=== PATIENT | female | born 1935 | race Caucasian/White ===

== ENCOUNTER 2020-12-31 15:00 | Observation (INO) ==
[2020-12-31 15:16] VITALS: BMI 22.3
[2020-12-31] MEDS ORDERED: HumaLOG SC PRN (17:18)
--- NOTE | 2020-12-31 17:45 | DR.EXTPAIN ---
HPI Time seen Time Seen by Provider: 12/31/20 17:00 PCP Primary Care Physician: AYESHA HPI Comment HPI Comment: Acccording to pt she noticed redness over the top of her right foot in the morning and then during the afternoon it spread upwards.Pt was seen by Dr Murray and was advised to come to ER for IV antibiotics Complaint/Symptoms Chief Complaint Doctor Comments: right leg redness Chief Complaint:: PT C/O PAIN TO RLE WITH REDNESS AND SWELLING. PATIENTS STATES SHE WOK UP LAST NIGHT WITH THE PAIN TO RLE. 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 Family History History of Family Medical Conditions: No Social History Does any household member use tobacco: No Alcohol Use: None Do you use any recreational Drugs:: No Lives With: Family Lives Where: Home Travel Risk Coronavirus risk:travel/contact w/high risk person: No Has patient experienced Coronavirus symptoms: No Infectious screening In the last 2 months have you had wt loss of >10#?: NO Have you had fever, night sweats or hemotysis?: No Have you traveled outside the country in the last 6 months?: No Isolation: Standard ROS Review of Systems Constitutional: No Symptoms Reported Eyes: No Symptoms Reported ENTM: No Symptoms Reported Respiratoy: No Symptoms Reported Cardiovascular: No Symptoms Reported Gastrointestinal/Abdominal: No Symptoms Reported Genitourinary: No Symptoms Reported Neurological: No Symptoms Reported Integumentary: See HPI Hematologic/Lymphatic: No Symptoms Reported PE Vital Signs Vitals: Temperature 98.1 F Pulse Rate 69 Respiratory Rate 16 Blood Pressure 157/70 O2 Sat by Pulse Oximetry 97 General Limitations: No Limitations General Appearance: Alert and Anxious Head Head Exam: Normal Inspection, Atraumatic and Normocephalic Eyes Eye exam: PERRL and EOMI ENT ENT Exam: Normal Oropharynx and Mucous Membranes Moist Neck Neck Exam: Normal Inspection and Full ROM Chest Chest Inspection: Normal Inspection and Symmetric Chest Wall Rise Respiratory Respiratory Exam: Normal Lung Sounds Bilat Respiratory Exam: Bilateral: Clear to Auscultation Cardiovascular Cardiovascular Exam: +S1 and +S2 Abdominal Exam Abdominal Exam: Normal Bowel Sounds and Soft Other Exam Other Exam: right lower ext pos erythematous and warm to touch good peripheral ulses MDM Differential Diagnosis Differential Diagnosis: Other (right lower ext cellulitis ) Opioid Opioid Risk Tool Age (Kameron box if 16-45): No History of Preadolescent Sexual Abuse: No Total: 0 Total Score Risk Category: Low Risk Copyright: Juarez STRONG predicting aberrant behaviors Diagnosis Discharge Problem: Cellulitis of leg, right
[2020-12-31 18:46] LABS: BASOPHILS % (AUTO) 0.2 % (0.2-1.0); EOSINOPHILS % (AUTO) 0.2 % (0.9-2.9); HEMATOCRIT 38.5 % (36.0-47.0); HEMOGLOBIN 12.5 g/dL (12.0-16.0); LYMPHOCYTES % (AUTO) 7.3 % (21.0-51.0); MEAN CORPUSCULAR HEMOGLOBIN 27.1 pg (27.0-34.0); MEAN CORPUSCULAR HGB CONC 32.5 g/dL (33.0-35.0); MEAN CORPUSCULAR VOLUME 83.4 fL (80.0-100.0); MEAN PLATELET VOLUME 8.8 fL (7.4-11.0); MONOCYTES % (AUTO) 7.4 % (0.0-13.0); NEUTROPHILS # (AUTO) 11.2 x10^3/uL (2.2-4.8); NEUTROPHILS % (AUTO) 84.9 % (42.0-75.0); PLATELET COUNT 166 X10^3/uL (150.0-450.0); RED BLOOD COUNT 4.61 X10^6/uL (3.5-5.4); RED CELL DISTRIBUTION WIDTH 16.2 % (11.6-16.5); WHITE BLOOD COUNT 13.2 X10^3/uL (3.6-10.0)
[2020-12-31 18:58] LABS: ALANINE AMINOTRANSFERASE 19 Units/L (12-78); ALBUMIN 2.9 g/dL (3.4-5.0); ALKALINE PHOSPHATASE 85 Units/L (46-116); ASPARTATE AMINO TRANSFERASE 24 Units/L (15-37); BLOOD UREA NITROGEN 20 mg/dL (7-18); CALCIUM 8.8 mg/dL (8.5-10.1); CHLORIDE 101 mmol/L (98-107); COR CA(FOR HYPOALB) 9.7 mg/dL (8.5-10.1); CREATININE 1.53 mg/dL (0.55-1.02); SODIUM 137 mmol/L (136-145); TOTAL PROTEIN 6.3 g/dL (6.4-8.2); eGFR NON BLACK RACES 34 (>60)
[2020-12-31] MEDS: ZOSYN VIAL 3.375 GRAMS 3.375 G in NS 100 ML IV + SPIKE MINIBAG* 100 ML IV SCH ×2 (20:15→21:53)
[2020-12-31] MEDS: LR 1000 ML IV 1,000 ML IV SCH (20:15)
[2020-12-31] MEDS ORDERED: SYNTHROID 75 mcg TAB ONE (21:00)
[2020-12-31] MEDS: DEMADEX PO SCH (21:05)
[2020-12-31] MEDS: ELIQUIS PO SCH (21:05)
--- NOTE | 2020-12-31 21:42 | DR.H&P ---
H&P History & Physical for Day of: H&P Date: 12/31/20 Chief Complaint Chief Complaint: 85-year-old female with history of major fibrillation, congestive heart failure, hypertension, hypothyroidism who is had several days of increasing redness of the right foot ankle and calf with increasing pain. Denies fever. Denies trauma. Allergies Allergies Allergy/AdvReac Type Severity Reaction Status Date / Time No Known Drug Allergies Allergy Verified 12/31/20 15:07 History of Present Illness History of Present Illness: see above Past Medical History Past Medical History: CHF, Hypertension and Hypothyroidism Additional Medical History: atrial fibrillation Past Surgical History Surgical History: Hysterectomy Social History Does patient currently use any type of tobacco product: No Have you used tobacco products in the last 12 months: No Does any household member use tobacco: No Alcohol Use: None Medications Home Medications: No Known Drug Allergies Allergy (Verified 12/31/20 15:07) CONTINUE taking the following medications apixaban [Eliquis] 2.5 mg PO BID 12/31/20 [History] estradiol 1 mg PO DAILY 12/31/20 [History] levothyroxine 75 mcg PO QAM 12/31/20 [History] losartan 25 mg PO BID 12/31/20 [History] potassium chloride 20 meq PO DAILY 12/31/20 [History] temazepam 15 mg PO QHS 12/31/20 [History] torsemide 40 mg PO BID 12/31/20 [History] Labs Result Diagrams: 12/31/20 16:31 12/31/20 16:31 Labs: Laboratory WBC 13.2 X10^3/uL (3.6-10.0) H 12/31/20 16:31 RBC 4.61 X10^6/uL (3.5-5.4) 12/31/20 16:31 Hgb 12.5 g/dL (12.0-16.0) 12/31/20 16:31 Hct 38.5 % (36.0-47.0) 12/31/20 16:31 MCV 83.4 fL (80.0-100.0) 12/31/20 16:31 MCH 27.1 pg (27.0-34.0) 12/31/20 16:31 MCHC 32.5 g/dL (33.0-35.0) L 12/31/20 16:31 RDW 16.2 % (11.6-16.5) 12/31/20 16:31 Plt Count 166 X10^3/uL (150.0-450.0) 12/31/20 16:31 MPV 8.8 fL (7.4-11.0) 12/31/20 16:31 Neut % (Auto) 84.9 % (42.0-75.0) H 12/31/20 16:31 Lymph % (Auto) 7.3 % (21.0-51.0) L 12/31/20 16:31 [place] % (Auto) 7.4 % (0.0-13.0) 12/31/20 16:31 Eos % (Auto) 0.2 % (0.9-2.9) L 12/31/20 16:31 Baso % (Auto) 0.2 % (0.2-1.0) 12/31/20 16:31 Neut # (Auto) 11.2 x10^3/uL (2.2-4.8) H 12/31/20 16:31 Lymph # (Auto) 1.0 X10^3/uL (1.3-2.9) L 12/31/20 16:31 [place] # (Auto) 1.0 x10^3/uL (0.3-0.8) H 12/31/20 16:31 Eos # (Auto) 0.0 x10^3/uL (0.0-0.2) 12/31/20 16:31 Baso # (Auto) 0.0 X10^3/uL (0.0-0.1) 12/31/20 16:31 Absolute Nucleated RBC 0.0 /100WBC 12/31/20 16:31 Sodium 137 mmol/L (136-145) 12/31/20 16:31 Corrected Sodium TNP 12/31/20 16:31 Potassium 3.8 mmol/L (3.5-5.1) 12/31/20 16:31 Chloride 101 mmol/L (98-107) 12/31/20 16:31 Carbon Dioxide 30.0 mmol/L (21-32) 12/31/20 16:31 BUN 20 mg/dL (7-18) H 12/31/20 16:31 Creatinine 1.53 mg/dL (0.55-1.02) H 12/31/20 16:31 Est GFR (MDRD) Af Amer 41 (>60) L 12/31/20 16:31 Est GFR (MDRD) Non-Af 34 (>60) L 12/31/20 16:31 Glucose 97 mg/dL (65-99) 12/31/20 16:31 Calcium 8.8 mg/dL (8.5-10.1) 12/31/20 16:31 Corrected Calcium 9.7 mg/dL (8.5-10.1) 12/31/20 16:31 Total Bilirubin 2.30 mg/dL (0.2-1.0) H 12/31/20 16:31 AST 24 Units/L (15-37) 12/31/20 16:31 ALT 19 Units/L (12-78) 12/31/20 16:31 Alkaline Phosphatase 85 Units/L (46-116) 12/31/20 16:31 Total Protein 6.3 g/dL (6.4-8.2) L 12/31/20 16:31 Albumin 2.9 g/dL (3.4-5.0) L 12/31/20 16:31 Globulin 3.4 g/dL (2.5-4.5) 12/31/20 16:31 Albumin/Globulin Ratio 0.9 Ratio (1.1-2.1) L 12/31/20 16:31 SARS CoV-2 RNA Rapid ALEC Negative (NEGATIVE) 12/31/20 17:18 Review of Systems Constitutional: Other (pain and redness right foot, ankle and calf); denies No Symptoms Reported, See HPI, Fever, Chills, Sweats, Weakness and Malaise Eyes: No Symptoms Reported ENT: No Symptoms Reported Respiratory: denies No Symptoms Reported, See HPI, Cough, Dry, Shortness of Breath, Hemoptysis, SOB with Excertion, Pleuritic Pain, Sputum, Wheezing and Other Cardiovascular: denies No Symptoms Reported, Chest Pain, See HPI, Palpitations, Orthopnea, Paroxysmal Noc. Dyspnea, Edema, Light Headedness and Other Gastrointestinal: denies No Symptoms Reported, See HPI, Nausea, Vomiting, Abdominal Pain, Diarrhea, Constipation, Melena, Hematochezia and Other Genitourinary: denies No Symptoms Reported, See HPI, Dysuria, Frequency, Incontinence, Hematuria, Retention and Other Musculoskeletal: Foot Pain (see above) Skin: Other (as above) Physical Exam Vital Signs: Temperature 98.1 F Pulse Rate [Radial] 71 Pulse Rate 69 Respiratory Rate 25 Blood Pressure [Right Arm] 158/74 Blood Pressure 157/70 O2 Sat by Pulse Oximetry 97 Oriented: Normal, Time, Person and Place Eyes: negative Normal, Blurred Vision, Diplopia, Discharge, Pain, Redness, Photophobia and Other Ear: negative Normal, Right, Left, Swelling, Ecchymosis, Hemotypanum, Abrasion and Laceration Nose: negative Normal, Injected, Discharge, Blood and Other Throat: negative Normal, Tonsillar Hypertrophy, Red, Exudate, Dry and Other Respiratory: Clear Throughout; negative Diminished Throughout, Rhonchi Through out, Rales Throughout, Wheezes Throughout, RUL Clear, RML Clear, RLL Clear, GEENA Clear, LML Clear, LLL Clear, RUL Diminished, RML Diminished, RLL Diminished, GEENA Diminished, LML Diminished, LLL Diminished, RUL Absent, RML Absent, RLL Absent, GEENA Absent, LML Absent, LLL Absent, RUL Rhonchi, RML Rhonchi, RLL Rhonchi, GEENA Rhonchi, LML Rhonchi, LLL Rhonchi, RUL Insp. Wheeze, RML Insp. Wheeze, RLL Insp. Wheeze, GEENA Insp.Wheeze, LML Insp.Wheeze, LLL Insp.Wheeze, RUL Exp. Wheeze, RML Exp. Wheeze, RLL Exp. Wheeze, GEENA Exp. Wheeze, LML Exp. Wheeze, LLL Exp. Wheeze, RUL Rales, RML Rales, RLL Rales, GEENA Rales, LML Rales, LLL Rales, RUL Rub, RML Rub, RLL Rub, GEENA Rub, LML Rub, LLL Rub, RUL Squeak, RML Squeak, RLL Squeak, GEENA Squeak, LML Squeak and LLL Squeak Cardiovascular: Normal and Irregular : Normal Auscultation: Bowel Sounds: Normal Palpation: Normal Tenderness: Normal Skin: Normal Musculoskeletal: Swelling (both feet warm with intact pulses b/l and significant redness entire circumferential right foot, ankle and calf) and Instability Psychiatric: Normal Mood Description: Calm Speech Pattern: Clear Assessment/Plan (1) Cellulitis of leg, right: Status: Acute Plan: IV Zosyn (2) Atrial fibrillation: Status: Acute Plan: continue Eliquis (3) Hypothyroidism: Status: Acute Plan: continue Synthroid Review H&P Reviewed: Yes Patient was examined?: Yes
[2020-12-31] MEDS: PERCOCET TAB 5/325 MG PO PRN (22:25)
[2020-12-31] MEDS: RESTORIL CAP 15 MG PO PRN (22:28)
[2021-01-01] MEDS: PERCOCET TAB 5/325 MG PO PRN ×2 (05:00→22:00)
[2021-01-01] MEDS: ZOSYN VIAL 3.375 GRAMS 3.375 G in NS 100 ML IV + SPIKE MINIBAG* 100 ML IV SCH ×3 (06:44→22:00)
[2021-01-01] MEDS: SYNTHROID 75 mcg TAB PO SCH (06:44)
[2021-01-01] MEDS ORDERED: LOVENOX INJ 40 MG SYR SC ONE (08:08)
[2021-01-01] MEDS: DEMADEX PO SCH ×2 (08:15→22:00)
[2021-01-01] MEDS: K-DUR TAB 20 MEQ PO SCH (08:16)
[2021-01-01] MEDS: ELIQUIS PO SCH ×2 (08:16→22:00)
[2021-01-01] MEDS: ESTRACE PO SCH (08:16)
[2021-01-01] MEDS: LOVENOX INJ 40 MG SYR SC SCH (08:17)
--- NOTE | 2021-01-01 14:03 | NOTE.SOAP ---
Soap Note Note for Day of Date of Exam: 01/01/21 Subjective Data Subjective Data: 85 yo female with cellulitis/inflammation of right leg from knee down.Pulses are intact. Improved from admission yesterday. Objective Data Temperature: 98.3 F Pulse Rate: 71 Respiratory Rate: 18 Blood Pressure: 138/65 O2 Sat by Pulse Oximetry: 95 Objective Data: As above Assessment Assessment: cellulitis /inflammation of the right leg Plan Plan: Continue IV antibiotics. Obtain venous u/s right leg
--- NOTE | 2021-01-01 17:56 | VAS ---
HISTORYCELLULITITS RIGHT LOWER EXT.STUDYLOWER EXT VENOUS, BILATERALCOMPARISONNoneTECHNIQUEMultiple guadalupe scale and color flow Doppler images of the deep venous system were obtained of the right and left lower extremity.FINDINGSThe deep venous system of the right and left lower extremities were evaluated from the level of the common femoral vein through the popliteal vein. Normal color flow and augmentation can be observed. In addition, normal compression is seen throughout the deep venous system.IMPRESSIONNegative for DVT.Electronically signed by: DIANA ALCANTARA (Jan 01, 2021 17:54:29)
[2021-01-01] MEDS: LR 1000 ML IV 1,000 ML IV SCH (19:00)
[2021-01-01] MEDS: RESTORIL CAP 15 MG PO PRN (22:00)
[2021-01-02] MEDS: SYNTHROID 75 mcg TAB PO SCH (05:47)
[2021-01-02] MEDS: ZOSYN VIAL 3.375 GRAMS 3.375 G in NS 100 ML IV + SPIKE MINIBAG* 100 ML IV SCH ×3 (06:59→21:00)
[2021-01-02] MEDS: ELIQUIS PO SCH ×2 (08:10→21:00)
[2021-01-02] MEDS: DEMADEX PO SCH ×2 (08:10→21:00)
[2021-01-02] MEDS: ESTRACE PO SCH (08:10)
[2021-01-02] MEDS: K-DUR TAB 20 MEQ PO SCH (08:32)
[2021-01-02] MEDS: LOVENOX INJ 40 MG SYR SC SCH (08:33)
[2021-01-02] MEDS: RESTORIL CAP 15 MG PO PRN (21:00)
[2021-01-02] MEDS: PERCOCET TAB 5/325 MG PO PRN (21:00)
--- NOTE | 2021-01-02 22:16 | NOTE.SOAP ---
Soap Note Note for Day of Date of Exam: 01/02/21 Subjective Data Subjective Data: Admitted with cellulitis of right leg Objective Data Temperature: 98.0 F Pulse Rate: 70 Respiratory Rate: 18 Blood Pressure: 172/74 O2 Sat by Pulse Oximetry: 100 Assessment Assessment: Redness improved right leg, U/S negative for DVT Plan Plan: Cellulitis right leg, Continue IV antibiotics.
[2021-01-02] MEDS: LR 1000 ML IV 1,000 ML IV SCH (23:00)
[2021-01-03] MEDS: ZOSYN VIAL 3.375 GRAMS 3.375 G in NS 100 ML IV + SPIKE MINIBAG* 100 ML IV SCH ×3 (05:42→21:30)
[2021-01-03] MEDS: SYNTHROID 75 mcg TAB PO SCH (06:15)
--- NOTE | 2021-01-03 09:33 | NOTE.SOAP ---
Soap Note Note for Day of Date of Exam: 01/03/21 Subjective Data Subjective Data: Patient doing well. Cellulitis right leg continues to improve. Objective Data Temperature: 98.8 F Pulse Rate: 70 Respiratory Rate: 16 Blood Pressure: 164/86 O2 Sat by Pulse Oximetry: 99 Objective Data: as above , right leg redness improving still Assessment Assessment: cellulitis right leg improving Plan Plan: Hopefully d/c home tomorrow with po antibiotics
[2021-01-03] MEDS: DEMADEX PO SCH ×2 (09:58→21:30)
[2021-01-03] MEDS: ELIQUIS PO SCH ×2 (09:59→21:30)
[2021-01-03] MEDS: ESTRACE PO SCH (09:59)
[2021-01-03] MEDS: K-DUR TAB 20 MEQ PO SCH (09:59)
[2021-01-03] MEDS: LOVENOX INJ 40 MG SYR SC SCH (10:00)
[2021-01-03] MEDS: COZAAR PO SCH ×2 (11:57→21:30)
[2021-01-03] MEDS: LR 1000 ML IV 1,000 ML IV SCH (18:02)
[2021-01-03] MEDS: RESTORIL CAP 15 MG PO PRN (21:30)
[2021-01-03] MEDS: PERCOCET TAB 5/325 MG PO PRN (22:00)
[2021-01-04] MEDS: ZOSYN VIAL 3.375 GRAMS 3.375 G in NS 100 ML IV + SPIKE MINIBAG* 100 ML IV SCH (05:52)
[2021-01-04] MEDS: SYNTHROID 75 mcg TAB PO SCH (05:53)
[2021-01-04] MEDS: DEMADEX PO SCH (08:24)
[2021-01-04] MEDS: COZAAR PO SCH (08:24)
[2021-01-04] MEDS: ELIQUIS PO SCH (08:25)
[2021-01-04] MEDS: K-DUR TAB 20 MEQ PO SCH (08:25)
[2021-01-04] MEDS: LOVENOX INJ 40 MG SYR SC SCH (08:25)
[2021-01-04] MEDS: ESTRACE PO SCH (08:25)
[2021-01-04 12:21] VITALS: BP 176/89
--- NOTE | 2021-01-04 12:23 | PCM.DCPLAN ---
DISCHARGE SUMMARY Admission Date Date of Admission: 12/31/20 Discharge Date Discharge Date: 01/04/21 Admission Diagnoses (1) Cellulitis of leg, right: Status: Acute (2) Atrial fibrillation: Status: Acute (3) Hypothyroidism: Status: Acute Discharge Diagnoses Discharge Diagnosis: same Discharge Medications Discharge Medications: Home Medication List apixaban [Eliquis] 2.5 mg PO BID 12/31/20 [History] estradiol 1 mg PO DAILY 12/31/20 [History] levothyroxine 75 mcg PO QAM 12/31/20 [History] losartan 25 mg PO BID 12/31/20 [History] potassium chloride 20 meq PO DAILY 12/31/20 [History] temazepam 15 mg PO QHS 12/31/20 [History] torsemide 40 mg PO BID 12/31/20 [History] sulfamethoxazole-trimethoprim [Bactrim DS] 1 tab PO BID #14 tab 01/04/21 [Rx] Prescriptions: sulfamethoxazole-trimethoprim [Bactrim DS] Anton Murray Hospital Course Vital Signs: Temperature 98.3 F Pulse Rate [Radial] 70 Pulse Rate 70 Respiratory Rate 20 Blood Pressure [Right Arm] 176/89 Blood Pressure 164/86 O2 Sat by Pulse Oximetry 100 Latest Lab Results: Laboratory Last Values WBC 13.2 X10^3/uL (3.6-10.0) H 12/31/20 16:31 RBC 4.61 X10^6/uL (3.5-5.4) 12/31/20 16:31 Hgb 12.5 g/dL (12.0-16.0) 12/31/20 16:31 Hct 38.5 % (36.0-47.0) 12/31/20 16:31 MCV 83.4 fL (80.0-100.0) 12/31/20 16:31 MCH 27.1 pg (27.0-34.0) 12/31/20 16:31 MCHC 32.5 g/dL (33.0-35.0) L 12/31/20 16:31 RDW 16.2 % (11.6-16.5) 12/31/20 16:31 Plt Count 166 X10^3/uL (150.0-450.0) 12/31/20 16:31 MPV 8.8 fL (7.4-11.0) 12/31/20 16:31 Neut % (Auto) 84.9 % (42.0-75.0) H 12/31/20 16:31 Lymph % (Auto) 7.3 % (21.0-51.0) L 12/31/20 16:31 [place] % (Auto) 7.4 % (0.0-13.0) 12/31/20 16:31 Eos % (Auto) 0.2 % (0.9-2.9) L 12/31/20 16:31 Baso % (Auto) 0.2 % (0.2-1.0) 12/31/20 16:31 Neut # (Auto) 11.2 x10^3/uL (2.2-4.8) H 12/31/20 16:31 Lymph # (Auto) 1.0 X10^3/uL (1.3-2.9) L 12/31/20 16:31 [place] # (Auto) 1.0 x10^3/uL (0.3-0.8) H 12/31/20 16:31 Eos # (Auto) 0.0 x10^3/uL (0.0-0.2) 12/31/20 16:31 Baso # (Auto) 0.0 X10^3/uL (0.0-0.1) 12/31/20 16:31 Absolute Nucleated RBC 0.0 /100WBC 12/31/20 16:31 Sodium 137 mmol/L (136-145) 12/31/20 16:31 Corrected Sodium TNP 12/31/20 16:31 Potassium 3.8 mmol/L (3.5-5.1) 12/31/20 16:31 Chloride 101 mmol/L (98-107) 12/31/20 16:31 Carbon Dioxide 30.0 mmol/L (21-32) 12/31/20 16:31 BUN 20 mg/dL (7-18) H 12/31/20 16:31 Creatinine 1.53 mg/dL (0.55-1.02) H 12/31/20 16:31 Est GFR (MDRD) Af Amer 41 (>60) L 12/31/20 16:31 Est GFR (MDRD) Non-Af 34 (>60) L 12/31/20 16:31 Glucose 97 mg/dL (65-99) 12/31/20 16:31 Calcium 8.8 mg/dL (8.5-10.1) 12/31/20 16:31 Corrected Calcium 9.7 mg/dL (8.5-10.1) 12/31/20 16:31 Total Bilirubin 2.30 mg/dL (0.2-1.0) H 12/31/20 16:31 AST 24 Units/L (15-37) 12/31/20 16:31 ALT 19 Units/L (12-78) 12/31/20 16:31 Alkaline Phosphatase 85 Units/L (46-116) 12/31/20 16:31 Total Protein 6.3 g/dL (6.4-8.2) L 12/31/20 16:31 Albumin 2.9 g/dL (3.4-5.0) L 12/31/20 16:31 Globulin 3.4 g/dL (2.5-4.5) 12/31/20 16:31 Albumin/Globulin Ratio 0.9 Ratio (1.1-2.1) L 12/31/20 16:31 SARS CoV-2 RNA Rapid ALEC Negative (NEGATIVE) 12/31/20 17:18 Hospital Course: 85-year-old female admitted on December 31 with significant cellulitis of the entire right calf and right foot. No obvious area of undrained pus. Etiology unknown. Denied recent trauma to that side although she had trauma on the left side. She was placed on IV Zosyn and has had resolution of all the redness and most of the swelling. She will be discharged home on PO Septra double strength one by mouth BID. She will follow up with me in the office and one week. She will be on her usual medications. Instructions Instructions: Cellulitis, Adult, [id number] Forms: Excuse From Work or School Precautions for COVID19 [facility] Social Distancing
== END 2021-01-04 13:50 | disposition home health service (06) ==
LOC: ER 15:07 → INTOOBSV 17:18 → OBS 17:18
PROVIDERS: ADMIT Surgery; ATTEND Surgery
DX: L03.115 Cellulitis of right lower limb; M79.604 Pain in right leg; E03.8 Other specified hypothyroidism; I48.91 Unspecified atrial fibrillation

== ENCOUNTER 2022-06-20 10:49 | Observation (INO) ==
[2022-06-20 12:49] LABS: BILIRUBIN,URINE NEGATIVE (NEGATIVE); BLOOD/HEMOGLOBIN,URINE NEGATIVE (NEGATIVE); GLUCOSE, URINE NEGATIVE (NEGATIVE); KETONES,URINE NEGATIVE (NEGATIVE); LEUKOCYTE ESTERASE ,URINE NEGATIVE (NEGATIVE); NITRITES,URINE NEGATIVE (NEGATIVE); PROTEIN,URINE NEGATIVE (NEGATIVE); UROBILINOGEN,URINE 1+ (NORMAL)
[2022-06-20 13:22] LABS: APPEARANCE,URINE CLEAR (CLEAR); BACTERIA,URINE TRACE /HPF (NEGATIVE); COLOR,URINE STRAW (YELLOW); RBC,URINE 0-2 /HPF (0-3); SQUAMOUS EPITHELIAL CELL,UR FEW /HPF (NEGATIVE)
[2022-06-20 13:23] LABS: YEAST,URINE RARE /HPF (NEGATIVE)
[2022-06-20 13:28] LABS: BASOPHILS # (AUTO) 0.1 X10^3/uL (0.0-0.1); BASOPHILS % (AUTO) 1.2 % (0.2-1.0); EOSINOPHILS # (AUTO) 0.1 x10^3/uL (0.0-0.2); EOSINOPHILS % (AUTO) 1.1 % (0.9-2.9); HEMATOCRIT 40.5 % (36.0-47.0); HEMOGLOBIN 13.1 g/dL (12.0-16.0); LYMPHOCYTES % (AUTO) 32.7 % (21.0-51.0); MEAN CORPUSCULAR HEMOGLOBIN 26.4 pg (27.0-34.0); MEAN CORPUSCULAR HGB CONC 32.4 g/dL (33.0-35.0); MEAN CORPUSCULAR VOLUME 81.5 fL (80.0-100.0); MEAN PLATELET VOLUME 8.1 fL (7.4-11.0); MONOCYTES # (AUTO) 0.7 x10^3/uL (0.3-0.8); MONOCYTES % (AUTO) 12.2 % (0.0-13.0); NEUTROPHILS # (AUTO) 3.3 x10^3/uL (2.2-4.8); NEUTROPHILS % (AUTO) 52.8 % (42.0-75.0); RED BLOOD COUNT 4.97 X10^6/uL (3.5-5.4); WHITE BLOOD COUNT 6.2 X10^3/uL (3.6-10.0)
[2022-06-20 13:41] LABS: BLOOD UREA NITROGEN 19 mg/dL (7-18); CALCIUM 9.2 mg/dL (8.5-10.1); CARBON DIOXIDE 28.1 mmol/L (21-32); CHLORIDE 102 mmol/L (98-107); CREATININE 1.46 mg/dL (0.55-1.02); SODIUM 138 mmol/L (136-145); eGFR NON BLACK RACES 36 (>60)
[2022-06-20] MEDS: NS 1,000 ML IV 1,000 ML IV SCH (13:50)
[2022-06-20 14:31] LABS: ALANINE AMINOTRANSFERASE 14 Units/L (12-78); ALKALINE PHOSPHATASE 164 Units/L (46-116); ASPARTATE AMINO TRANSFERASE 39 Units/L (15-37); TOTAL PROTEIN 6.4 g/dL (6.4-8.2)
[2022-06-20 14:32] LABS: ALBUMIN 2.8 g/dL (3.4-5.0); COR CA(FOR HYPOALB) 10.2 mg/dL (8.5-10.1)
[2022-06-20] MEDS: ZOFRAN INJ 4 MG VIAL IVP PRN (17:17)
[2022-06-20] MEDS: RESTORIL CAP 15 MG PO PRN (19:34)
[2022-06-20] MEDS: COZAAR PO SCH (19:34)
[2022-06-21] MEDS: NS 1,000 ML IV 1,000 ML IV SCH ×4 (00:44→17:24)
[2022-06-21 07:04] LABS: BASOPHILS # (AUTO) 0.1 X10^3/uL (0.0-0.1); BASOPHILS % (AUTO) 1.2 % (0.2-1.0); EOSINOPHILS # (AUTO) 0.1 x10^3/uL (0.0-0.2); EOSINOPHILS % (AUTO) 2.1 % (0.9-2.9); HEMATOCRIT 40.7 % (36.0-47.0); HEMOGLOBIN 13.1 g/dL (12.0-16.0); LYMPHOCYTES # (AUTO) 2.5 X10^3/uL (1.3-2.9); LYMPHOCYTES % (AUTO) 41.7 % (21.0-51.0); MEAN CORPUSCULAR HEMOGLOBIN 26.1 pg (27.0-34.0); MEAN CORPUSCULAR HGB CONC 32.1 g/dL (33.0-35.0); MEAN CORPUSCULAR VOLUME 81.4 fL (80.0-100.0); MEAN PLATELET VOLUME 8.4 fL (7.4-11.0); MONOCYTES # (AUTO) 0.7 x10^3/uL (0.3-0.8); MONOCYTES % (AUTO) 11.2 % (0.0-13.0); NEUTROPHILS # (AUTO) 2.6 x10^3/uL (2.2-4.8); NEUTROPHILS % (AUTO) 43.8 % (42.0-75.0); RED CELL DISTRIBUTION WIDTH 16.3 % (11.6-16.5); WHITE BLOOD COUNT 5.9 X10^3/uL (3.6-10.0)
[2022-06-21 07:18] LABS: ALANINE AMINOTRANSFERASE 12 Units/L (12-78); ALBUMIN 2.5 g/dL (3.4-5.0); ALKALINE PHOSPHATASE 154 Units/L (46-116); ASPARTATE AMINO TRANSFERASE 31 Units/L (15-37); BLOOD UREA NITROGEN 16 mg/dL (7-18); CARBON DIOXIDE 28.6 mmol/L (21-32); CHLORIDE 104 mmol/L (98-107); COR CA(FOR HYPOALB) 10.2 mg/dL (8.5-10.1); CREATININE 1.42 mg/dL (0.55-1.02); SODIUM 139 mmol/L (136-145); TOTAL PROTEIN 5.8 g/dL (6.4-8.2); eGFR NON BLACK RACES 37 (>60)
[2022-06-21] MEDS: COZAAR PO SCH (09:00)
--- NOTE | 2022-06-21 12:27 | DR.H&P ---
H&P History & Physical for Day of: H&P Date: 06/21/22 Chief Complaint Chief Complaint: nausea, vomiting, poor oral intake Allergies Allergies Allergy/AdvReac Type Severity Reaction Status Date / Time No Known Drug Allergies Allergy Unknown Unverified 01/10/21 10:16 History of Present Illness History of Present Illness: Ms Montero is a 87y/o female who was directly admitted due to worsening nausea, vomiting and poor oral intake. Patient reports not being able to keep anything down. She is feeling a little better. She did eat some breakfast. Denies any vomiting since admission, still has some nausea. Denies diarrhea or constipation. Labs reviewed: BUN/Cr 12/05.42 Urine Cx: no growth Plan: Continue hydration with NS, monitor renal function. Advance diet as tolerated. Zofran prn. Resume home medications. Monitor AM labs. Past Medical History Past Medical History: CHF, Hypertension and Hypothyroidism Additional Medical History: atrial fibrillation Past Surgical History Surgical History: Ortho Surgery Family History Family Medical History: Heart Failure Social History Does patient currently use any type of tobacco product: No Have you used tobacco products in the last 12 months: No Type of Tobacco Use: None Alcohol Use: None Drug Use: None Medications Home Medications: No Known Drug Allergies Allergy (Unknown, Unverified 01/10/21 10:16) CONTINUE taking the following medications apixaban 2.5 mg tablet (Eliquis) 2.5 mg PO BID 06/21/22 [History] estradiol 1 mg tablet 1 mg PO QDAY 06/21/22 [History] levothyroxine 75 mcg tablet 75 mcg PO 0700 06/21/22 [History] losartan 25 mg tablet 25 mg PO BID 06/21/22 [History] potassium chloride 20 mEq tablet,extended release 20 meq PO QDAY 06/21/22 [History] temazepam 15 mg capsule 15 mg PO HS 06/21/22 [History] torsemide 20 mg tablet 40 mg PO BID 06/21/22 [History] Labs Result Diagrams: 06/21/22 06:28 06/21/22 06:28 Labs: 06/20/22 12:30 Urine,Clean Catch Urine Culture - Preliminary Laboratory WBC 5.9 X10^3/uL (3.6-10.0) 06/21/22 06:28 RBC 5.00 X10^6/uL (3.5-5.4) 06/21/22 06: Hgb 13.1 g/dL (12.0-16.0) 06/21/22 06: Hct 40.7 % (36.0-47.0) 06/21/22 06: MCV 81.4 fL (80.0-100.0) 06/21/22 06: MCH 26.1 pg (27.0-34.0) L 06/21/22 06: MCHC 32.1 g/dL (33.0-35.0) L 06/21/22 06: RDW 16.3 % (11.6-16.5) 06/21/22: Plt Count 256 X10^3/uL (150.0-450.0) 06/21/22: MPV 8.4 fL (7.4-11.0) 06/21/22 06: Neut % (Auto) 43.8 % (42.0-75.0) 06/21/22 06: Lymph % (Auto) 41.7 % (21.0-51.0) 06/21/22 06: Allen % (Auto) 11.2 % (0.0-13.0) 06/21/22: Eos % (Auto) 2.1 % (0.9-2.9) 06/21/22: Baso % (Auto) 1.2 % (0.2-1.0) H 06/21/22 06: Neut # (Auto) 2.6 x10^3/uL (2.2-4.8) 06/21/22 06: Lymph # (Auto) 2.5 X10^3/uL (1.3-2.9) 06/21/22 06: Allen # (Auto) 0.7 x10^3/uL (0.3-0.8) 06/21/22 06: Eos # (Auto) 0.1 x10^3/uL (0.0-0.2) 06/21/22 06: Baso # (Auto) 0.1 X10^3/uL (0.0-0.1) 06/21/22 06: Absolute Nucleated RBC 0.1 /100WBC 06/21/22 06:28 Sodium 139 mmol/L (136-145) 06/21/22 06:28 Corrected Sodium TNP 06/21/22 06:28 Potassium 4.2 mmol/L (3.5-5.1) 06/21/22 06:28 Chloride 104 mmol/L (98-107) 06/21/22 06:28 Carbon Dioxide 28.6 mmol/L (21-32) 06/21/22 06:28 BUN 16 mg/dL (7-18) 06/21/22 06:28 Creatinine 1.42 mg/dL (0.55-1.02) H 06/21/22 06:28 Est GFR (MDRD) Af Amer 45 (>60) L 06/21/22 06:28 Est GFR (MDRD) Non-Af 37 (>60) L 06/21/22 06:28 Glucose 78 mg/dL (65-99) 06/21/22 06:28 Calcium 9.0 mg/dL (8.5-10.1) 06/21/22 06:28 Corrected Calcium 10.2 mg/dL (8.5-10.1) H 06/21/22 06:28 Total Bilirubin 2.50 mg/dL (0.2-1.0) H 06/21/22 06:28 AST 31 Units/L (15-37) 06/21/22 06:28 ALT 12 Units/L (12-78) 06/21/22 06:28 Alkaline Phosphatase 154 Units/L (46-116) H 06/21/22 06:28 Total Protein 5.8 g/dL (6.4-8.2) L 06/21/22 06:28 Albumin 2.5 g/dL (3.4-5.0) L 06/21/22 06:28 Globulin 3.3 g/dL (2.5-4.5) 06/21/22 06:28 Albumin/Globulin Ratio 0.8 Ratio (1.1-2.1) L 06/21/22 06:28 Specimen Type Clean catch urine 06/20/22 12:30 Urine Color Straw (YELLOW) 06/20/22 12:30 Urine Appearance Clear (CLEAR) 06/20/22 12:30 Urine pH 6.0 (5.0 - 8.0) 06/20/22 12:30 Ur Specific [place] 1.015 (1.000-1.030) 06/20/22 12:30 Urine Protein Negative (NEGATIVE) 06/20/22 12:30 Urine Glucose (UA) Negative (NEGATIVE) 06/20/22 12:30 Urine Ketones Negative (NEGATIVE) 06/20/22 12:30 Urine Blood Negative (NEGATIVE) 06/20/22 12:30 Urine Nitrite Negative (NEGATIVE) 06/20/22 12:30 Urine Bilirubin Negative (NEGATIVE) 06/20/22 12:30 Urine Urobilinogen 1+ (NORMAL) 06/20/22 12:30 Ur Leukocyte Esterase Negative (NEGATIVE) 06/20/22 12:30 Urine RBC 0-2 /HPF (0-3) 06/20/22 12:30 Urine WBC 0-2 /HPF (0-5) 06/20/22 12:30 Ur Squamous Epith Cells Few /HPF (NEGATIVE) 06/20/22 12:30 Urine Bacteria Trace /HPF (NEGATIVE) 06/20/22 12:30 Urine Yeast Rare /HPF (NEGATIVE) 06/20/22 12:30 Ur Culture Indicated? Yes/culture set up 06/20/22 12:30 Review of Systems Constitutional: Weakness Eyes: No Symptoms Reported ENT: No Symptoms Reported Cardiovascular: No Symptoms Reported Gastrointestinal: Nausea, Vomiting and Abdominal Pain Musculoskeletal: No Symptoms Reported Skin: No Symptoms Reported Neurological: No Symptoms Reported Physical Exam Vital Signs: Temperature 97.7 F Pulse Rate [Left Brachial] 70 Respiratory Rate 18 Blood Pressure [Left Arm] 160/96 Blood Pressure [Right Arm] 176/89 O2 Sat by Pulse Oximetry 98 Oriented: Normal Eyes: Normal Respiratory: Clear Throughout Cardiovascular: Normal Auscultation: Bowel Sounds: Normal Palpation: Normal Tenderness: Normal Skin: Decreased Turgur Musculoskeletal: Normal Psychiatric: Anxiety Affect: Anxious Speech Pattern: Clear and Appropriate Assessment/Plan (1) Generalized weakness: Status: Acute (2) Nausea & vomiting: Status: Acute (3) Dehydration: Status: Acute (4) Hypothyroidism: Status: Acute (5) Atrial fibrillation: Status: Acute (6) Hypertension: Status: None Review H&P Reviewed: Yes Patient was examined?: Yes
[2022-06-21] MEDS: ELIQUIS PO SCH ×2 (13:55→21:25)
[2022-06-21] MEDS: ZOFRAN INJ 4 MG VIAL IVP PRN ×2 (15:54→21:12)
[2022-06-21] MEDS ORDERED: DEMADEX PO SCH (17:05)
[2022-06-21] MEDS: RESTORIL CAP 15 MG PO PRN (21:25)
[2022-06-21] MEDS: DEMADEX PO SCH (21:26)
[2022-06-22] MEDS: SYNTHROID 75 mcg TAB PO SCH (06:08)
--- NOTE | 2022-06-22 06:17 | RAD ---
HISTORYCoughSTUDYAP chestCOMPARISONReport only October 18, 2018FINDINGSCardiomegaly with pacemaker. The pulmonary vessels are distended. Pleural effusions are present with dense opacification in the left lower lobe.IMPRESSIONCardiomegaly with pulmonary vascular congestion suggesting mild CHF. Bilateral pleural effusions with left basal opacity suggesting airspace consolidation/atelectasis. Follow-up indicated.Electronically signed by: PANCHO DUBOIS (Jun 22, 2022 06:15:45)
[2022-06-22 06:33] LABS: BASOPHILS # (AUTO) 0.1 X10^3/uL (0.0-0.1); BASOPHILS % (AUTO) 0.8 % (0.2-1.0); EOSINOPHILS # (AUTO) 0.1 x10^3/uL (0.0-0.2); EOSINOPHILS % (AUTO) 1.5 % (0.9-2.9); HEMATOCRIT 39.3 % (36.0-47.0); HEMOGLOBIN 12.7 g/dL (12.0-16.0); LYMPHOCYTES # (AUTO) 1.6 X10^3/uL (1.3-2.9); LYMPHOCYTES % (AUTO) 25.9 % (21.0-51.0); MEAN CORPUSCULAR HEMOGLOBIN 26.2 pg (27.0-34.0); MEAN CORPUSCULAR HGB CONC 32.4 g/dL (33.0-35.0); MEAN CORPUSCULAR VOLUME 80.7 fL (80.0-100.0); MEAN PLATELET VOLUME 8.4 fL (7.4-11.0); MONOCYTES # (AUTO) 0.9 x10^3/uL (0.3-0.8); NEUTROPHILS # (AUTO) 3.6 x10^3/uL (2.2-4.8); NEUTROPHILS % (AUTO) 57.8 % (42.0-75.0); RED BLOOD COUNT 4.87 X10^6/uL (3.5-5.4); RED CELL DISTRIBUTION WIDTH 15.7 % (11.6-16.5); WHITE BLOOD COUNT 6.3 X10^3/uL (3.6-10.0)
[2022-06-22 06:49] LABS: ALANINE AMINOTRANSFERASE 11 Units/L (12-78); ALBUMIN 2.4 g/dL (3.4-5.0); ALKALINE PHOSPHATASE 150 Units/L (46-116); ASPARTATE AMINO TRANSFERASE 29 Units/L (15-37); BLOOD UREA NITROGEN 14 mg/dL (7-18); CALCIUM 8.7 mg/dL (8.5-10.1); CARBON DIOXIDE 29.6 mmol/L (21-32); CHLORIDE 103 mmol/L (98-107); CREATININE 1.28 mg/dL (0.55-1.02); SODIUM 139 mmol/L (136-145); TOTAL PROTEIN 5.7 g/dL (6.4-8.2); eGFR NON BLACK RACES 42 (>60)
[2022-06-22] MEDS ORDERED: DEMADEX PO SCH (09:00)
[2022-06-22] MEDS: ELIQUIS PO SCH ×2 (09:24→20:01)
[2022-06-22] MEDS: ESTRACE PO SCH (09:24)
[2022-06-22] MEDS: DEMADEX PO SCH ×2 (09:25→20:02)
[2022-06-22] MEDS: COZAAR PO SCH (09:25)
[2022-06-22] MEDS: LOPRESSOR TAB 25 MG PO SCH (11:13)
[2022-06-22] MEDS: ARICEPT TAB 5 MG PO SCH (11:13)
[2022-06-22] MEDS: ZOFRAN INJ 4 MG VIAL IVP PRN (11:13)
[2022-06-22] MEDS: DESMOPRESSIN 0.2 MG PO SCH (11:18)
[2022-06-22] MEDS ORDERED: ROCEPHIN 1 GRAM IV PREMIX 1 G/50 ML IV.SOLN. IV SCH (12:24)
--- NOTE | 2022-06-22 12:28 | PCM.PROG ---
Progress Note Progress Note for Day of Date of Exam: 06/22/22 Subjective Subjective: Patient seen at bedside, she was noted to be hypoxia yesterday with some crackles. IVF was stopped, CXR showed mild CHF. Her home dose Torsemide was resumed. She is feeling better. She is currently on 3L O2. She still has nausea, no vomiting or diarrhea. She did have a BM this morning. She reports poor appetite. Labs/imaging reviewed: BUN/Cr 14/1.28 K 4.1 Hgb 12.7 Urine Cx: >3 organisms Plan: Wean O2 as tolerated, continue Torsemide, monitor I&Os. Start IV Rocephin. Zofran prn. Ambulate as tolerated. Monitor AM labs/imaging. Repeat CXR in the AM. Past Medical Family Social History Past Med/Fam/Surg Hx: No changes since H&P Allergies: Allergies No Known Drug Allergies Allergy (Unknown, Unverified 01/10/21 10:16) Onset Date: 01/10/2021 Vital Signs and I&O's Vital Signs: Temperature 97.8 F Pulse Rate [Left Brachial] 75 Respiratory Rate 22 Blood Pressure [Left Arm] 157/84 Blood Pressure [Right Arm] 155/80 O2 Sat by Pulse Oximetry 96 Intake and Output: Intake & Output 06/19/22 06/20/22 06/21/22 06/22/22 23:59 23:59 23:59 23:59 Intake Total 590 / 590 1694 / 1694 550 / 550 Output Total 600 / 600 2400 / 2400 Balance 590 / 590 1094 / 1094 -1850 / -1850 Physical Exam Oriented: Normal Eyes: Normal Throat: Normal Respiratory: Generalized, Diminished and Rales Cardiovascular: Normal Auscultation: Bowel Sounds: Normal Palpation: Normal Tenderness: Normal Skin: Decreased Turgur Musculoskeletal: Normal Psychiatric: Normal Mood Description: Calm Affect: Normal Speech Pattern: Clear and Appropriate Laboratory and Diagnostics Result Diagrams: 06/22/22 05:39 06/22/22 05:39 Labs: 06/20/22 12:30 Urine,Clean Catch Urine Culture - Final Laboratory WBC 6.3 X10^3/uL (3.6-10.0) 06/22/22 05:39 RBC 4.87 X10^6/uL (3.5-5.4) 06/22/22 05:39 Hgb 12.7 g/dL (12.0-16.0) 06/22/22 05:39 Hct 39.3 % (36.0-47.0) 06/22/22 05:39 MCV 80.7 fL (80.0-100.0) 06/22/22 05:39 MCH 26.2 pg (27.0-34.0) L 06/22/22 05:39 MCHC 32.4 g/dL (33.0-35.0) L 06/22/22 05:39 RDW 15.7 % (11.6-16.5) 06/22/22 05:39 Plt Count 237 X10^3/uL (150.0-450.0) 06/22/22 05:39 MPV 8.4 fL (7.4-11.0) 06/22/22 05:39 Neut % (Auto) 57.8 % (42.0-75.0) 06/22/22 05:39 Lymph % (Auto) 25.9 % (21.0-51.0) 06/22/22 05:39 [place] % (Auto) 14.0 % (0.0-13.0) H 06/22/22 05:39 Eos % (Auto) 1.5 % (0.9-2.9) 06/22/22 05:39 Baso % (Auto) 0.8 % (0.2-1.0) 06/22/22 05:39 Neut # (Auto) 3.6 x10^3/uL (2.2-4.8) 06/22/22 05:39 Lymph # (Auto) 1.6 X10^3/uL (1.3-2.9) 06/22/22 05:39 [place] # (Auto) 0.9 x10^3/uL (0.3-0.8) H 06/22/22 05:39 Eos # (Auto) 0.1 x10^3/uL (0.0-0.2) 06/22/22 05:39 Baso # (Auto) 0.1 X10^3/uL (0.0-0.1) 06/22/22 05:39 Absolute Nucleated RBC 0.1 /100WBC 06/22/22 05:39 Sodium 139 mmol/L (136-145) 06/22/22 05:39 Corrected Sodium TNP 06/22/22 05:39 Potassium 4.1 mmol/L (3.5-5.1) 06/22/22 05:39 Chloride 103 mmol/L (98-107) 06/22/22 05:39 Carbon Dioxide 29.6 mmol/L (21-32) 06/22/22 05:39 BUN 14 mg/dL (7-18) 06/22/22 05:39 Creatinine 1.28 mg/dL (0.55-1.02) H 06/22/22 05:39 Est GFR (MDRD) Af Amer 50 (>60) L 06/22/22 05:39 Est GFR (MDRD) Non-Af 42 (>60) L 06/22/22 05:39 Glucose 83 mg/dL (65-99) 06/22/22 05:39 Calcium 8.7 mg/dL (8.5-10.1) 06/22/22 05:39 Corrected Calcium 10.0 mg/dL (8.5-10.1) 06/22/22 05:39 Total Bilirubin 2.30 mg/dL (0.2-1.0) H 06/22/22 05:39 AST 29 Units/L (15-37) 06/22/22 05:39 ALT 11 Units/L (12-78) L 06/22/22 05:39 Alkaline Phosphatase 150 Units/L (46-116) H 06/22/22 05:39 Total Protein 5.7 g/dL (6.4-8.2) L 06/22/22 05:39 Albumin 2.4 g/dL (3.4-5.0) L 06/22/22 05:39 Globulin 3.3 g/dL (2.5-4.5) 06/22/22 05:39 Albumin/Globulin Ratio 0.7 Ratio (1.1-2.1) L 06/22/22 05:39 Specimen Type Clean catch urine 06/20/22 12:30 Urine Color Straw (YELLOW) 06/20/22 12:30 Urine Appearance Clear (CLEAR) 06/20/22 12:30 Urine pH 6.0 (5.0 - 8.0) 06/20/22 12:30 Ur Specific [place] 1.015 (1.000-1.030) 06/20/22 12:30 Urine Protein Negative (NEGATIVE) 06/20/22 12:30 Urine Glucose (UA) Negative (NEGATIVE) 06/20/22 12:30 Urine Ketones Negative (NEGATIVE) 06/20/22 12:30 Urine Blood Negative (NEGATIVE) 06/20/22 12:30 Urine Nitrite Negative (NEGATIVE) 06/20/22 12:30 Urine Bilirubin Negative (NEGATIVE) 06/20/22 12:30 Urine Urobilinogen 1+ (NORMAL) 06/20/22 12:30 Ur Leukocyte Esterase Negative (NEGATIVE) 06/20/22 12:30 Urine RBC 0-2 /HPF (0-3) 06/20/22 12:30 Urine WBC 0-2 /HPF (0-5) 06/20/22 12:30 Ur Squamous Epith Cells Few /HPF (NEGATIVE) 06/20/22 12:30 Urine Bacteria Trace /HPF (NEGATIVE) 06/20/22 12:30 Urine Yeast Rare /HPF (NEGATIVE) 06/20/22 12:30 Ur Culture Indicated? Yes/culture set up 06/20/22 12:30 Plan (1) Generalized weakness: Status: Acute (2) Nausea & vomiting: Status: Acute (3) Dehydration: Status: Acute (4) Hypothyroidism: Status: Acute (5) Atrial fibrillation: Status: Acute (6) Hypertension: Status: None (7) UTI (urinary tract infection): Status: Acute
[2022-06-22] MEDS ORDERED: ROCEPHIN VIAL 1 GRAM ONE (13:01)
[2022-06-22] MEDS ORDERED: NS 100 ML IV 100 ML ONE (13:01)
[2022-06-22] MEDS: RESTORIL CAP 15 MG PO PRN (20:01)
[2022-06-23] MEDS: SYNTHROID 75 mcg TAB PO SCH (06:02)
[2022-06-23 06:51] LABS: BASOPHILS # (AUTO) 0.1 X10^3/uL (0.0-0.1); BASOPHILS % (AUTO) 1.1 % (0.2-1.0); EOSINOPHILS # (AUTO) 0.1 x10^3/uL (0.0-0.2); EOSINOPHILS % (AUTO) 2.3 % (0.9-2.9); HEMATOCRIT 41.5 % (36.0-47.0); HEMOGLOBIN 13.5 g/dL (12.0-16.0); LYMPHOCYTES # (AUTO) 1.7 X10^3/uL (1.3-2.9); LYMPHOCYTES % (AUTO) 28.2 % (21.0-51.0); MEAN CORPUSCULAR HEMOGLOBIN 26.5 pg (27.0-34.0); MEAN CORPUSCULAR HGB CONC 32.5 g/dL (33.0-35.0); MEAN CORPUSCULAR VOLUME 81.5 fL (80.0-100.0); MEAN PLATELET VOLUME 8.4 fL (7.4-11.0); MONOCYTES # (AUTO) 0.9 x10^3/uL (0.3-0.8); MONOCYTES % (AUTO) 15.3 % (0.0-13.0); NEUTROPHILS # (AUTO) 3.2 x10^3/uL (2.2-4.8); NEUTROPHILS % (AUTO) 53.1 % (42.0-75.0); RED BLOOD COUNT 5.09 X10^6/uL (3.5-5.4); RED CELL DISTRIBUTION WIDTH 16.2 % (11.6-16.5)
[2022-06-23 07:04] LABS: ALANINE AMINOTRANSFERASE 10 Units/L (12-78); ALBUMIN 2.3 g/dL (3.4-5.0); ALKALINE PHOSPHATASE 147 Units/L (46-116); ASPARTATE AMINO TRANSFERASE 27 Units/L (15-37); BLOOD UREA NITROGEN 11 mg/dL (7-18); CALCIUM 8.5 mg/dL (8.5-10.1); CARBON DIOXIDE 33.4 mmol/L (21-32); CHLORIDE 102 mmol/L (98-107); COR CA(FOR HYPOALB) 9.9 mg/dL (8.5-10.1); CREATININE 1.33 mg/dL (0.55-1.02); SODIUM 138 mmol/L (136-145); TOTAL PROTEIN 5.5 g/dL (6.4-8.2); eGFR NON BLACK RACES 40 (>60)
[2022-06-23] MEDS: COZAAR PO SCH (08:28)
[2022-06-23] MEDS: ROCEPHIN VIAL 1 GRAM 1 G in NS 100 ML IV 100 ML IV SCH (08:28)
[2022-06-23] MEDS: DEMADEX PO SCH ×2 (08:29→20:32)
[2022-06-23] MEDS: ESTRACE PO SCH (08:29)
[2022-06-23] MEDS: LOPRESSOR TAB 25 MG PO SCH (08:30)
[2022-06-23] MEDS: ARICEPT TAB 5 MG PO SCH (08:30)
[2022-06-23] MEDS: ELIQUIS PO SCH ×2 (08:30→20:33)
[2022-06-23] MEDS: DESMOPRESSIN 0.2 MG PO SCH (09:51)
[2022-06-23] MEDS ORDERED: PHARMACY CONSULT - TPN XX SCH (13:00)
[2022-06-23] MEDS: ALBUMIN HUMAN 25%- 100 ML 100 ML IV SCH (14:28)
[2022-06-23] MEDS ORDERED: DRUG FILTER EXTENSION SET ONE (14:35)
[2022-06-23] MEDS: CLINIMIX 4.25%-5% 1,000 ML IV SCH (14:55)
[2022-06-23] MEDS: ZOFRAN INJ 4 MG VIAL IVP PRN (18:31)
[2022-06-23 19:05] VITALS: BMI 23.2
[2022-06-23] MEDS: RESTORIL CAP 15 MG PO PRN (20:32)
[2022-06-24 04:26] LABS: BILIRUBIN,URINE NEGATIVE (NEGATIVE); BLOOD/HEMOGLOBIN,URINE NEGATIVE (NEGATIVE); GLUCOSE, URINE NEGATIVE (NEGATIVE); KETONES,URINE NEGATIVE (NEGATIVE); LEUKOCYTE ESTERASE ,URINE NEGATIVE (NEGATIVE); NITRITES,URINE NEGATIVE (NEGATIVE); PROTEIN,URINE NEGATIVE (NEGATIVE); UROBILINOGEN,URINE 1+ (NORMAL)
[2022-06-24 04:30] LABS: COLOR,URINE PALE YELLOW (YELLOW)
[2022-06-24 04:31] LABS: APPEARANCE,URINE CLEAR (CLEAR); BACTERIA,URINE NEGATIVE /HPF (NEGATIVE); RBC,URINE NONE SEEN /HPF (0-3); SQUAMOUS EPITHELIAL CELL,UR RARE /HPF (NEGATIVE)
[2022-06-24 06:13] LABS: BASOPHILS # (AUTO) 0.1 X10^3/uL (0.0-0.1); BASOPHILS % (AUTO) 1.3 % (0.2-1.0); EOSINOPHILS # (AUTO) 0.1 x10^3/uL (0.0-0.2); EOSINOPHILS % (AUTO) 2.7 % (0.9-2.9); HEMATOCRIT 39.2 % (36.0-47.0); HEMOGLOBIN 12.7 g/dL (12.0-16.0); LYMPHOCYTES # (AUTO) 1.5 X10^3/uL (1.3-2.9); LYMPHOCYTES % (AUTO) 31.2 % (21.0-51.0); MEAN CORPUSCULAR HEMOGLOBIN 26.2 pg (27.0-34.0); MEAN CORPUSCULAR HGB CONC 32.3 g/dL (33.0-35.0); MEAN CORPUSCULAR VOLUME 81.2 fL (80.0-100.0); MEAN PLATELET VOLUME 8.4 fL (7.4-11.0); MONOCYTES # (AUTO) 0.8 x10^3/uL (0.3-0.8); MONOCYTES % (AUTO) 16.5 % (0.0-13.0); NEUTROPHILS # (AUTO) 2.4 x10^3/uL (2.2-4.8); NEUTROPHILS % (AUTO) 48.3 % (42.0-75.0); RED BLOOD COUNT 4.83 X10^6/uL (3.5-5.4)
[2022-06-24] MEDS: SYNTHROID 75 mcg TAB PO SCH (06:14)
[2022-06-24 07:37] LABS: ALANINE AMINOTRANSFERASE 11 Units/L (12-78); ALKALINE PHOSPHATASE 135 Units/L (46-116); ASPARTATE AMINO TRANSFERASE 28 Units/L (15-37); BLOOD UREA NITROGEN 12 mg/dL (7-18); CALCIUM 8.7 mg/dL (8.5-10.1); CARBON DIOXIDE 34.3 mmol/L (21-32); CHLORIDE 101 mmol/L (98-107); COR CA(FOR HYPOALB) 9.5 mg/dL (8.5-10.1); CREATININE 1.29 mg/dL (0.55-1.02); SODIUM 141 mmol/L (136-145); TOTAL PROTEIN 6.1 g/dL (6.4-8.2); eGFR NON BLACK RACES 41 (>60)
--- NOTE | 2022-06-24 07:44 | RAD ---
HISTORYShortness of breathSTUDYChest AP [id number]/[id number] e is a pacemaker present on the left obscuring a portion of the left midlung. The heart remains enlarged. Mild pulmonary venous congestion is present. Bilateral pleural effusions are present and unchanged. Right lung and left upper lung osorio are free of acute infiltrates. There is persistent increased density retrocardiac area of the left lower lobe obscuring the left hemidiaphragm which could be on the basis of pleural fluid, atelectasis, consolidation or combination. Finding is unchanged. Bony thorax is unremarkable.IMPRESSIONNo significant change from the prior examinationElectronically signed by: NAVYA BENNETT (Jun 24, 2022 07:43:07)
[2022-06-24] MEDS: COZAAR PO SCH (08:35)
[2022-06-24] MEDS: DEMADEX PO SCH ×2 (08:36→20:55)
[2022-06-24] MEDS: ARICEPT TAB 5 MG PO SCH (08:36)
[2022-06-24] MEDS: ELIQUIS PO SCH ×2 (08:36→20:54)
[2022-06-24] MEDS: ESTRACE PO SCH (08:37)
[2022-06-24] MEDS: ALBUMIN HUMAN 25%- 100 ML 100 ML IV SCH (08:37)
[2022-06-24] MEDS: LOPRESSOR TAB 25 MG PO SCH (08:37)
[2022-06-24] MEDS: ROCEPHIN VIAL 1 GRAM 1 G in NS 100 ML IV 100 ML IV SCH (10:51)
[2022-06-24] MEDS ORDERED: MICRO K EXTEN CAP 10 MEQ PO PRN (12:05)
[2022-06-24] MEDS ORDERED: POTASSIUM CHL 60 MEQ/NS 0.45% 500 ML IV PRN (12:05)
[2022-06-24] MEDS ORDERED: KLOR-CON PO PRN (12:05)
[2022-06-24] MEDS ORDERED: K-RIDER 10 MEQ/NS 100 ML 10 MEQ/100 ML BAG IV PRN (12:05)
[2022-06-24] MEDS ORDERED: POTASSIUM CHL 40 MEQ/NS 0.45% 500 ML IV PRN (12:05)
[2022-06-24] MEDS: DESMOPRESSIN 0.2 MG PO SCH (12:08)
[2022-06-24] MEDS: MEGACE PO SCH ×2 (12:16→20:54)
--- NOTE | 2022-06-24 12:39 | PCM.PROG ---
Progress Note - Progress Note for Day of Date of Exam: 06/23/22 - Subjective Subjective: IS A 87 YEAR OLD PATIENT OF OURS WHO WAS ADMITTED TO THE HOSPTIAL ON 06/21/22 OBSERVATION STATUS FOR TREATMENT OF DEHYDRATION, NAUSEA AND VOMITING, INTERMITTENT SHORTNESS OF BREATH, GENERALIZED WEAKNESS, CHF, HYPOTHYROIDISM, ATRIAL FIBRILLATION, AND HTN. PATIENTS FAMILY REPORTS THAT SHE HAD BECAME VERY WEAK AT HOME DUE TO POOR ORAL INTAKE. WHEN SHE DID EAT OR DRINK, SHE WAS UNABLE TO KEEP ANYTHING DOWN. SHE DENIES DIARRHEA OR CONSTIPATION. SHE CONTINUES TO HAVE NAUSEA AT TIMES, BUT DENIES VOMITING SINCE ADMISSION. SHE WAS HYPOXIC YESTERDAY. CHEST XRAY REVEALED MILD CHF AND PLEURAL EFFUSIONS. HER HOME TORSEMIDE WAS RESUMED. TODAY, SHE IS ALERT AND ORIENTED, LYING IN BED ON MORNING ROUNDS. SHE CONTINUES WITH COMPLAINTS OF WEAKNESS AND SHORTNESS OF BREATH AT TIMES. SHE DENIES NAUSEA OR VOMITING THIS MORNING. SHE DOES CONTINUE TO HAVE A DECREASED APPETITE. ON EXAMINATION, HEART IS REGUALR IN RATE AND RHYTHM. BILATERAL LUNGS ARE NOTED WITH DIMINISHED LUNG SOUNDS THROUGHOUT. ABDOMEN IS FLAT, SOFT, AND NON-TENDER WITH NORMAL BOWEL SOUNDS NOTED IN ALL QUADRANTS. NO UPPER OR LOWER EXTREMITY EDEMA NOTED. SHE IS CURRENTLY UTILIZING OXYGEN VIA NASAL CANNULA AT 3 LPM. HER VITALS THIS MORNING ARE: 97.1-70-18-97%-134/69. LABS WERE OBTAINED. WBC 6.0, RBC 5.09, HGB 13.5, HCT 41.5, PLT COUNT 238, SODIUM 138, POTASSIUM 4.0, CHLORIDE 102, CARBON DIOXIDE 33.4, BUN 11, CREATININE 1.33, GLUCOSE 79, TOTAL BILI 2.40, AST 27, ALT 10, ALK PHOS 147, TOTAL PROTEIN 5.5, ALBUMIN 2.3. SHE IS CURRENTLY RECEIVING ROCEPHIN 1G IV DAILY, ZOFRAN 4MG IV Q4H PRN NAUSEA, ELIQUIS 2.5MG BID, ARICEPT 5MG DAILY, ESTRACE 1MG DAILY, SYNTHROID 75MCG DAILY, COZAAR 25MG PO DAILY, LOPRESSOR 25MG DAILY, RESTORIL 15MG PO HS PRN, AND TORSEMIDE 20MG PO BID. TODAY, WE WILL ADD ALBUMIN 25% IV DAILY AND TPN AT 41 ML/HR DUE TO PROTEIN-CALORIE MALNUTRITION. PHYSICAL THERAPY WILL EVALUATE AND WORK WITH PATIENT TODAY. OTHERWISE, WE WILL FOLLOW-UP WITH AM LABS AND CONTINUE TO MONITOR. TIME SPENT ON CLINICAL ASSESSMENT, REVIWING LABS AND IMAGING, DECISION MAKING, AND DOCUMENTATION GREATER THAN 45 MINUTES. - Past Medical Family Social History Past Med/Fam/Surg Hx: No changes since H&P Allergies: Allergies No Known Drug Allergies Allergy (Unknown, Verified 06/23/22 19:48) Onset Date: 01/10/2021 - Vital Signs and I&O's Vital Signs: Temperature 98.7 F Pulse Rate [Left Brachial] 70 Pulse Rate 64 Respiratory Rate 18 Blood Pressure [Left Arm] 131/75 Blood Pressure [Right Arm] 140/79 O2 Sat by Pulse Oximetry 100 Intake and Output: Intake & Output 06/22/22 06/23/22 06/24/22 06/25/22 11:59 11:59 11:59 11:59 Intake Total 1464 / 1464 600 / 600 1352 / 1352 Output Total 3000 / 3000 2024 300 / 300 Balance -1536 / -1536 -1425 / -1425 1052 / 1052 - Physical Exam Oriented: Normal Eyes: Normal Ear: Normal Nose: Normal Throat: Normal Respiratory: Generalized, Diminished Cardiovascular: Normal : Normal Auscultation: Bowel Sounds: Normal Palpation: Normal Tenderness: Normal Skin: Decreased Turgur Musculoskeletal: Normal Psychiatric: Normal Mood Description: Calm Affect: Normal Speech Pattern: Clear, Appropriate - Laboratory and Diagnostics Result Diagrams: 06/27/22 06:25 06/27/22 06:25 Labs: 06/20/22 12:30 Urine,Clean Catch Urine Culture - Final Laboratory WBC 5.0 X10^3/uL (3.6-10.0) 06/24/22 07:01 RBC 4.83 X10^6/uL (3.5-5.4) 06/24/22 07:01 Hgb 12.7 g/dL (12.0-16.0) 06/24/22 07:01 Hct 39.2 % (36.0-47.0) 06/24/22 07:01 MCV 81.2 fL (80.0-100.0) 06/24/22 07:01 MCH 26.2 pg (27.0-34.0) L 06/24/22 07:01 MCHC 32.3 g/dL (33.0-35.0) L 06/24/22 07:01 RDW 16.0 % (11.6-16.5) 06/24/22 07:01 Plt Count 224 X10^3/uL (150.0-450.0) 06/24/22 07:01 MPV 8.4 fL (7.4-11.0) 06/24/22 07:01 Neut % (Auto) 48.3 % (42.0-75.0) 06/24/22 07:01 Lymph % (Auto) 31.2 % (21.0-51.0) 06/24/22 07:01 [place] % (Auto) 16.5 % (0.0-13.0) H 06/24/22 07:01 Eos % (Auto) 2.7 % (0.9-2.9) 06/24/22 07:01 Baso % (Auto) 1.3 % (0.2-1.0) H 06/24/22 07:01 Neut # (Auto) 2.4 x10^3/uL (2.2-4.8) 06/24/22 07:01 Lymph # (Auto) 1.5 X10^3/uL (1.3-2.9) 06/24/22 07:01 [place] # (Auto) 0.8 x10^3/uL (0.3-0.8) 06/24/22 07:01 Eos # (Auto) 0.1 x10^3/uL (0.0-0.2) 06/24/22 07:01 Baso # (Auto) 0.1 X10^3/uL (0.0-0.1) 06/24/22 07:01 Absolute Nucleated RBC 0.1 /100WBC 06/24/22 07:01 Sodium 141 mmol/L (136-145) 06/24/22 07:01 Corrected Sodium TNP 06/24/22 07:01 Potassium 3.4 mmol/L (3.5-5.1) L 06/24/22 07:01 Chloride 101 mmol/L (98-107) 06/24/22 07:01 Carbon Dioxide 34.3 mmol/L (21-32) H 06/24/22 07:01 BUN 12 mg/dL (7-18) 06/24/22 07:01 Creatinine 1.29 mg/dL (0.55-1.02) H 06/24/22 07:01 Est GFR (MDRD) Af Amer 50 (>60) L 06/24/22 07:01 Est GFR (MDRD) Non-Af 41 (>60) L 06/24/22 07:01 Glucose 94 mg/dL (65-99) 06/24/22 07:01 Calcium 8.7 mg/dL (8.5-10.1) 06/24/22 07:01 Corrected Calcium 9.5 mg/dL (8.5-10.1) 06/24/22 07:01 Magnesium 1.3 mg/dL (2.0-2.9) L 06/24/22 07:01 Total Bilirubin 2.00 mg/dL (0.2-1.0) H 06/24/22 07:01 AST 28 Units/L (15-37) 06/24/22 07:01 ALT 11 Units/L (12-78) L 06/24/22 07:01 Alkaline Phosphatase 135 Units/L (46-116) H 06/24/22 07:01 Total Protein 6.1 g/dL (6.4-8.2) L 06/24/22 07:01 Albumin 3.0 g/dL (3.4-5.0) L 06/24/22 07:01 Globulin 3.1 g/dL (2.5-4.5) 06/24/22 07:01 Albumin/Globulin Ratio 1.0 Ratio (1.1-2.1) L 06/24/22 07:01 Specimen Type Clean catch urine 06/24/22 04:10 Urine Color Pale yellow (YELLOW) 06/24/22 04:10 Urine Appearance Clear (CLEAR) 06/24/22 04:10 Urine pH 7.0 (5.0 - 8.0) 06/24/22 04:10 Ur Specific [place] 1.010 (1.000-1.030) 06/24/22 04:10 Urine Protein Negative (NEGATIVE) 06/24/22 04:10 Urine Glucose (UA) Negative (NEGATIVE) 06/24/22 04:10 Urine Ketones Negative (NEGATIVE) 06/24/22 04:10 Urine Blood Negative (NEGATIVE) 06/24/22 04:10 Urine Nitrite Negative (NEGATIVE) 06/24/22 04:10 Urine Bilirubin Negative (NEGATIVE) 06/24/22 04:10 Urine Urobilinogen 1+ (NORMAL) 06/24/22 04:10 Ur Leukocyte Esterase Negative (NEGATIVE) 06/24/22 04:10 Urine RBC None seen /HPF (0-3) 06/24/22 04:10 Urine WBC None seen /HPF (0-5) 06/24/22 04:10 Ur Squamous Epith Cells Rare /HPF (NEGATIVE) 06/24/22 04:10 Urine Bacteria Negative /HPF (NEGATIVE) 06/24/22 04:10 Urine Yeast Rare /HPF (NEGATIVE) 06/20/22 12:30 Ur Culture Indicated? Yes/culture set up 06/24/22 04:10 - Plan (1) CHF (congestive heart failure) Status: Acute Qualifiers: Heart failure type: unspecified Heart failure chronicity: acute on chronic Qualified Code(s): I50.9 - Heart failure, unspecified Plan: TPN AT 41 ML/HR, ALBUMIN 25% IV DAILY, ROCEPHIN 1G IV DAILY, ZOFRAN 4MG IV Q4H PRN NAUSEA, ELIQUIS 2.5MG BID, ARICEPT 5MG DAILY, ESTRACE 1MG DAILY, SYNTHR OID 75MCG DAILY, COZAAR 25MG PO DAILY, LOPRESSOR 25MG DAILY, RESTORIL 15MG PO HS PRN, AND TORSEMIDE 20MG PO BID. (2) Pleural effusion Status: Acute (3) Bronchitis Status: Acute (4) Protein calorie malnutrition Status: Acute Qualifiers: Protein-calorie malnutrition severity: mild Qualified Code(s): E44.1 - Mild protein-calorie malnutrition (5) Dehydration Status: Acute (6) Hypothyroidism Status: Chronic Qualifiers: Hypothyroidism type: acquired Qualified Code(s): E03.9 - Hypothyroidism, unspecified (7) Atrial fibrillation Status: Chronic Qualifiers: Atrial fibrillation type: unspecified Qualified Code(s): I48.91 - Unspecified atrial fibrillation (8) Hypertension Status: Chronic Qualifiers: Hypertension type: primary hypertension Qualified Code(s): I10 - Essential (primary) hypertension
[2022-06-24] MEDS: MAGNESIUM SULFATE 1 GRAM/100 mL PREMIX 1 G/100 ML BAG IV PRN ×4 (13:22→22:39)
[2022-06-24] MEDS: POTASSIUM CHLORIDE LIQ 20 MEQ UDC PO PRN (13:22)
[2022-06-24] MEDS: K-DUR TAB 20 MEQ PO PRN ×2 (17:00→22:39)
[2022-06-24] MEDS: CLINIMIX 4.25%-5% 1,000 ML IV SCH (17:42)
[2022-06-24] MEDS: RESTORIL CAP 15 MG PO PRN (20:54)
--- NOTE | 2022-06-25 05:16 | RAD ---
PROCEDURE: Chest X-ray 1 View .HISTORY: Dyspnea.TECHNIQUE: AP portable done at 4:36 a.m..COMPARISON: 06/24/2022.TECHNICAL QUALITY: Satisfactory .FINDINGS:Unchanged cardiomegaly with pacemaker on the left.Mediastinum and hilar regions show no masses or lymphadenopathy .Normal central vascularity .Unchanged bilateral pleural effusions and some atelectasis right mid lower lung field. No definite consolidation or masses.No acute bony abnormality .IMPRESSION:1. Unchanged cardiomegaly.2. Continued pleural fluid atelectasis is described above.Electronically signed by: Jatin Hendrix (Jun 25, 2022 05:15:49)
[2022-06-25] MEDS: SYNTHROID 75 mcg TAB PO SCH (06:22)
[2022-06-25 06:50] LABS: BASOPHILS # (AUTO) 0.1 X10^3/uL (0.0-0.1); EOSINOPHILS # (AUTO) 0.1 x10^3/uL (0.0-0.2); EOSINOPHILS % (AUTO) 2.4 % (0.9-2.9); HEMATOCRIT 39.6 % (36.0-47.0); HEMOGLOBIN 12.7 g/dL (12.0-16.0); LYMPHOCYTES # (AUTO) 1.7 X10^3/uL (1.3-2.9); LYMPHOCYTES % (AUTO) 29.2 % (21.0-51.0); MEAN CORPUSCULAR HEMOGLOBIN 26.1 pg (27.0-34.0); MEAN CORPUSCULAR VOLUME 81.5 fL (80.0-100.0); MEAN PLATELET VOLUME 8.4 fL (7.4-11.0); MONOCYTES # (AUTO) 0.8 x10^3/uL (0.3-0.8); MONOCYTES % (AUTO) 13.9 % (0.0-13.0); NEUTROPHILS # (AUTO) 3.1 x10^3/uL (2.2-4.8); NEUTROPHILS % (AUTO) 53.5 % (42.0-75.0); RED BLOOD COUNT 4.86 X10^6/uL (3.5-5.4); RED CELL DISTRIBUTION WIDTH 16.1 % (11.6-16.5); WHITE BLOOD COUNT 5.8 X10^3/uL (3.6-10.0)
[2022-06-25 06:52] LABS: ALANINE AMINOTRANSFERASE 8 Units/L (12-78); ALBUMIN 2.9 g/dL (3.4-5.0); ALKALINE PHOSPHATASE 121 Units/L (46-116); ASPARTATE AMINO TRANSFERASE 24 Units/L (15-37); BLOOD UREA NITROGEN 14 mg/dL (7-18); CALCIUM 8.6 mg/dL (8.5-10.1); CARBON DIOXIDE 32.4 mmol/L (21-32); CHLORIDE 104 mmol/L (98-107); COR CA(FOR HYPOALB) 9.5 mg/dL (8.5-10.1); CREATININE 1.07 mg/dL (0.55-1.02); MAGNESIUM 2.4 mg/dL (2.0-2.9); SODIUM 140 mmol/L (136-145); TOTAL PROTEIN 5.9 g/dL (6.4-8.2); eGFR NON BLACK RACES 51 (>60)
[2022-06-25] MEDS ORDERED: STERILE WATER IRRIGATION IR ONE (07:24)
[2022-06-25] MEDS: ROCEPHIN VIAL 1 GRAM 1 G in NS 100 ML IV 100 ML IV SCH (09:16)
[2022-06-25] MEDS: ALBUMIN HUMAN 25%- 100 ML 100 ML IV SCH (10:43)
--- NOTE | 2022-06-25 11:11 | PCM.PROG ---
Progress Note - Progress Note for Day of Date of Exam: 06/24/22 - Subjective Subjective: IS A 87 YEAR OLD PATIENT OF OURS WHO WAS ADMITTED TO THE HOSPTIAL ON 06/21/22 OBSERVATION STATUS FOR TREATMENT OF CHF, PLEURAL EFFUSION, BRONCHITIS, PROTEIN-CALORIE MALNUTRITION, DEHYDRATION, DECONDITIONING, GENERALIZED WEAKNESS, CHF, HYPOTHYROIDISM, ATRIAL FIBRILLATION, AND HTN. P ATIENTS FAMILY REPORTS THAT SHE HAD BECAME VERY WEAK AT HOME DUE TO POOR ORAL INTAKE. WHEN SHE DID EAT OR DRINK, SHE WAS UNABLE TO KEEP ANYTHING DOWN. SHE DENIES DIARRHEA OR CONSTIPATION. TODAY, SHE IS ALERT AND ORIENTED, LYING IN BED ON MORNING ROUNDS. SHE CONTINUES WITH COMPLAINTS OF WEAKNESS AND SHORTNESS OF BREATH AT TIMES. SHE DENIES NAUSEA OR VOMITING THIS MORNING. SHE DOES CONTINUE TO HAVE A DECREASED APPETITE, BUT FAMILY REPORTS THAT SHE DID EAT SLIGHTLY BETTER TODAY. ON EXAMINATION, HEART IS REGUALR IN RATE AND RHYTHM. BILATERAL LUNGS ARE NOTED WITH DIMINISHED LUNG SOUNDS THROUGHOUT. ABDOMEN IS FLAT, SOFT, AND NON-TENDER WITH NORMAL BOWEL SOUNDS NOTED IN ALL QUADRANTS. NO UPPER OR LOWER EXTREMITY EDEMA NOTED. SHE IS CURRENTLY UTILIZING OXYGEN VIA NASAL CANNULA AT 2 LPM. HER VITALS THIS MORNING ARE: 98.7-70-18-100%-140/79. LABS WERE OBTAINED. WBC 5.0, RBC 4.83, HGB 12.7, HCT 39.2, PLT COUNT 224, SODIUM 141, POTASSIUM 3.4, CHLORIDE 101, CARBON DIOXIDE 34.3, BUN 12, CREATININE 1.29, GLUCOSE 94, CALCIUM 8.7, MAGNESUM 1.3, TOTAL BILI 2.00, ALT 11, ALK PHOS 135, TOTAL PROTEIN 6.1, ALBUMIN 3.0. A CHEST XRAY WAS OBTAINED TODAY AND REVEALED: There is a pacemaker present on the left obscuring a portion of the left midlung. The heart remains enlarged. Mild pulmonary venous congestion is present. Bilateral pleural effusions are present and unchanged. Right lung and left upper lung osorio are free of acute infiltrates. There is persistent increased density retrocardiac area of the left lower lobe obscuring the left hemidiaphragm which could be on the basis of pleural fluid, atelectasis, consolidation or combination. Finding is unchanged. Bony thorax is unremarkable. SHE IS CURRENTLY RECEIVING TPN, ALBUMIN 25% IV DAILY, ROCEPHIN 1G IV DAILY, ZOFRAN 4MG IV Q4H PRN NAUSEA, ELIQUIS 2.5MG BID, ARICEPT 5MG DAILY, ESTRACE 1MG DAILY, SYNTHROID 75MCG DAILY, COZAAR 25MG PO DAILY, LOPRESSOR 25MG DAILY, RESTORIL 15MG PO HS PRN, AND TORSEMIDE 20MG PO BID. PHYSICAL THERAPY WILL CONT INUE TO WORK WITH PATIENT TODAY. WE WILL ADD MEGACE 40MG PO BID FOR APPETITE. OTHERWISE, WE WILL FOLLOW-UP WITH AM LABS AND CONTINUE TO MONITOR. TIME SPENT ON CLINICAL ASSESSMENT, REVIWING LABS AND IMAGING, DECISION MAKING, AND DOCUMENTATION GREATER THAN 45 MINUTES. - Past Medical Family Social History Past Med/Fam/Surg Hx: No changes since H&P Allergies: Allergies No Known Drug Allergies Allergy (Unknown, Verified 06/23/22 19:48) Onset Date: 01/10/2021 - Review of Systems ROS: No change since H&P - Vital Signs and I&O's Vital Signs: Temperature 97.8 F Pulse Rate [Left Brachial] 77 Pulse Rate 64 Respiratory Rate 18 Blood Pressure [Left Arm] 146/70 Blood Pressure [Right Arm] 152/90 O2 Sat by Pulse Oximetry 93 Intake and Output: Intake & Output 06/22/22 06/23/22 06/24/22 06/25/22 11:59 11:59 11:59 11:59 Intake Total 1464 / 1464 600 / 600 1352 / 1352 2420 / 2420 Output Total 3000 / 3000 2024 300 / 300 Balance -1536 / -1536 -1425 / -1425 1052 / 1052 2420 / 2420 - Physical Exam Oriented: Normal Eyes: Normal Ear: Normal Nose: Normal Throat: Normal Respiratory: Generalized, Diminished Cardiovascular: Normal : Normal Auscultation: Bowel Sounds: Normal Palpation: Normal Tenderness: Normal Skin: Decreased Turgur Musculoskeletal: Normal Psychiatric: Normal Mood Description: Calm Affect: Normal Speech Pattern: Clear, Appropriate - Laboratory and Diagnostics Result Diagrams: 06/27/22 06:25 06/27/22 06:25 Labs: 06/24/22 04:14 Urine,Clean Catch Urine Culture - Preliminary 06/20/22 12:30 Urine,Clean Catch Urine Culture - Final Laboratory WBC 5.8 X10^3/uL (3.6-10.0) 06/25/22 05:45 RBC 4.86 X10^6/uL (3.5-5.4) 06/25/22 05:45 Hgb 12.7 g/dL (12.0-16.0) 06/25/22 05:45 Hct 39.6 % (36.0-47.0) 06/25/22 05:45 MCV 81.5 fL (80.0-100.0) 06/25/22 05:45 MCH 26.1 pg (27.0-34.0) L 06/25/22 05:45 MCHC 32.0 g/dL (33.0-35.0) L 06/25/22 05:45 RDW 16.1 % (11.6-16.5) 06/25/22 05:45 Plt Count 229 X10^3/uL (150.0-450.0) 06/25/22 05:45 MPV 8.4 fL (7.4-11.0) 06/25/22 05:45 Neut % (Auto) 53.5 % (42.0-75.0) 06/25/22 05:45 Lymph % (Auto) 29.2 % (21.0-51.0) 06/25/22 05:45 [place] % (Auto) 13.9 % (0.0-13.0) H 06/25/22 05:45 Eos % (Auto) 2.4 % (0.9-2.9) 06/25/22 05:45 Baso % (Auto) 1.0 % (0.2-1.0) 06/25/22 05:45 Neut # (Auto) 3.1 x10^3/uL (2.2-4.8) 06/25/22 05:45 Lymph # (Auto) 1.7 X10^3/uL (1.3-2.9) 06/25/22 05:45 [place] # (Auto) 0.8 x10^3/uL (0.3-0.8) 06/25/22 05:45 Eos # (Auto) 0.1 x10^3/uL (0.0-0.2) 06/25/22 05:45 Baso # (Auto) 0.1 X10^3/uL (0.0-0.1) 06/25/22 05:45 Absolute Nucleated RBC 0.0 /100WBC 06/25/22 05:45 Sodium 140 mmol/L (136-145) 06/25/22 05:45 Corrected Sodium TNP 06/25/22 05:45 Potassium 4.2 mmol/L (3.5-5.1) 06/25/22 05:45 Chloride 104 mmol/L (98-107) 06/25/22 05:45 Carbon Dioxide 32.4 mmol/L (21-32) H 06/25/22 05:45 BUN 14 mg/dL (7-18) 06/25/22 05:45 Creatinine 1.07 mg/dL (0.55-1.02) H 06/25/22 05:45 Est GFR (MDRD) Af Amer > 60 (>60) 06/25/22 05:45 Est GFR (MDRD) Non-Af 51 (>60) L 06/25/22 05:45 Glucose 79 mg/dL (65-99) 06/25/22 05:45 Calcium 8.6 mg/dL (8.5-10.1) 06/25/22 05:45 Corrected Calcium 9.5 mg/dL (8.5-10.1) 06/25/22 05:45 Magnesium 2.4 mg/dL (2.0-2.9) 06/25/22 05:45 Total Bilirubin 1.40 mg/dL (0.2-1.0) H 06/25/22 05:45 AST 24 Units/L (15-37) 06/25/22 05:45 ALT 8 Units/L (12-78) L 06/25/22 05:45 Alkaline Phosphatase 121 Units/L (46-116) H 06/25/22 05:45 B-Natriuretic Peptide 1840 pg/mL (0-79) H* 06/25/22 05:45 Total Protein 5.9 g/dL (6.4-8.2) L 06/25/22 05:45 Albumin 2.9 g/dL (3.4-5.0) L 06/25/22 05:45 Globulin 3.0 g/dL (2.5-4.5) 06/25/22 05:45 Albumin/Globulin Ratio 1.0 Ratio (1.1-2.1) L 06/25/22 05:45 Specimen Type Clean catch urine 06/24/22 04:10 Urine Color Pale yellow (YELLOW) 06/24/22 04:10 Urine Appearance Clear (CLEAR) 06/24/22 04:10 Urine pH 7.0 (5.0 - 8.0) 06/24/22 04:10 Ur Specific [place] 1.010 (1.000-1.030) 06/24/22 04:10 Urine Protein Negative (NEGATIVE) 06/24/22 04:10 Urine Glucose (UA) Negative (NEGATIVE) 06/24/22 04:10 Urine Ketones Negative (NEGATIVE) 06/24/22 04:10 Urine Blood Negative (NEGATIVE) 06/24/22 04:10 Urine Nitrite Negative (NEGATIVE) 06/24/22 04:10 Urine Bilirubin Negative (NEGATIVE) 06/24/22 04:10 Urine Urobilinogen 1+ (NORMAL) 06/24/22 04:10 Ur Leukocyte Esterase Negative (NEGATIVE) 06/24/22 04:10 Urine RBC None seen /HPF (0-3) 06/24/22 04:10 Urine WBC None seen /HPF (0-5) 06/24/22 04:10 Ur Squamous Epith Cells Rare /HPF (NEGATIVE) 06/24/22 04:10 Urine Bacteria Negative /HPF (NEGATIVE) 06/24/22 04:10 Urine Yeast Rare /HPF (NEGATIVE) 06/20/22 12:30 Ur Culture Indicated? Yes/culture set up 06/24/22 04:10 - Plan (1) CHF (congestive heart failure) Status: Acute Qualifiers: Heart failure type: unspecified Heart failure chronicity: acute on chronic Qualified Code(s): I50.9 - Heart failure, unspecified Plan: TPN AT 41 ML/HR, ALBUMIN 25% IV DAILY, ROCEPHIN 1G IV DAILY, ZOFRAN 4MG IV Q4H PRN NAUSEA, ELIQUIS 2.5MG BID, ARICEPT 5MG DAILY, ESTRACE 1MG DAILY, SYNTHR OID 75MCG DAILY, COZAAR 25MG PO DAILY, LOPRESSOR 25MG DAILY, RESTORIL 15MG PO HS PRN, AND TORSEMIDE 20MG PO BID. (2) Pleural effusion Status: Acute (3) Bronchitis Status: Acute (4) Protein calorie malnutrition Status: Acute Qualifiers: Protein-calorie malnutrition severity: mild Qualified Code(s): E44.1 - Mild protein-calorie malnutrition (5) Physical deconditioning Status: Acute (6) Dehydration Status: Acute (7) Hypothyroidism Status: Chronic Qualifiers: Hypothyroidism type: acquired Qualified Code(s): E03.9 - Hypothyroidism, unspecified (8) Atrial fibrillation Status: Chronic Qualifiers: Atrial fibrillation type: unspecified Qualified Code(s): I48.91 - Unspecified atrial fibrillation (9) Hypertension Status: Chronic Qualifiers: Hypertension type: primary hypertension Qualified Code(s): I10 - Essential (primary) hypertension
[2022-06-25] MEDS ORDERED: FENTANYL VIAL INJ 100 mcg ONE (13:08)
[2022-06-25] MEDS ORDERED: VERSED ONE (13:08)
[2022-06-25] MEDS ORDERED: DIPRIVAN VIAL 20 ML ONE (13:09)
[2022-06-25] MEDS ORDERED: XYLOCAINE 2 % (PLAIN) ONE (13:09)
[2022-06-25] MEDS ORDERED: PEPCID 20 MG VIAL ONE (13:10)
[2022-06-25] MEDS ORDERED: ZOFRAN INJ 4 MG VIAL ONE (13:10)
[2022-06-25] MEDS ORDERED: PRECEDEX INJ VIAL IVP ONE (13:10)
[2022-06-25] MEDS ORDERED: ROBINUL ONE (13:10)
[2022-06-25] MEDS ORDERED: REGLAN INJ 10 MG VIAL ONE (13:10)
[2022-06-25] MEDS ORDERED: DECADRON INJ ONE (13:10)
[2022-06-25] MEDS ORDERED: XYLOCAINE 1 % (PLAIN) ONE (13:21)
[2022-06-25] MEDS ORDERED: POLYMYXIN B SULFATE ONE (13:21)
[2022-06-25] MEDS ORDERED: NS 100 ML IV 100 ML ONE (13:35)
[2022-06-25] MEDS ORDERED: ANCEF VIAL 1 GRAM ONE (13:35)
[2022-06-25] MEDS ORDERED: LR 1,000 ML IV 1,000 ML IV ONE (13:35)
[2022-06-25] MEDS ORDERED: KETAMINE HCL ONE (13:49)
--- NOTE | 2022-06-25 16:07 | RAD ---
HISTORYPICC LINE PLACEMENTSTUDYCHEST, 1 VIEWCOMPARISONNoneFINDINGSRight subclavian MediPort central venous catheter is in the expected location of the superior vena cava. No PICC line identified.There is abnormal opacity at the right apex which was not present previously. This may be due to a pleural effusion layering dependently and causing apical capping on this relatively supine study.Similar new apical capping on the left side.There is also a lucency in the right apex and left apex which was not present previously. This does not have the typical appearance of a pneumothorax. It might represent emphysema in the soft tissues from the line placement. It could also represent isolated lung in the pleural effusions which are present.Cardiomegaly is present. Vascular calcifications are present compatible with atherosclerosis.Degenerative changes are present in the spine.Left subclavian ICD is present with leads in expected location. EKG leads are noted.IMPRESSION1. Right subclavian line placement2. Bilateral effusions3. CardiomegalyElectronically signed by: Fabián Cheng (Jun 25, 2022 16:05:53)
[2022-06-25] MEDS: ARICEPT TAB 5 MG PO SCH (16:19)
[2022-06-25] MEDS: DEMADEX PO SCH ×3 (16:20→20:42)
[2022-06-25] MEDS: ELIQUIS PO SCH ×2 (16:20→20:36)
[2022-06-25] MEDS: MEGACE PO SCH ×2 (16:20→20:35)
[2022-06-25] MEDS: ESTRACE PO SCH (16:20)
[2022-06-25] MEDS: DESMOPRESSIN 0.2 MG PO SCH (16:20)
[2022-06-25] MEDS: COZAAR PO SCH (16:20)
[2022-06-25] MEDS: LOPRESSOR TAB 25 MG PO SCH (16:21)
[2022-06-25] MEDS ORDERED: DRUG FILTER EXTENSION SET ONE (17:03)
[2022-06-25] MEDS: CLINIMIX 4.25%-5% 1,000 ML IV SCH (17:40)
[2022-06-25] MEDS: PERCOCET TAB 5/325 MG PO PRN (21:01)
[2022-06-25] MEDS: RESTORIL CAP 15 MG PO PRN (21:01)
[2022-06-26] MEDS: SYNTHROID 75 mcg TAB PO SCH (06:07)
[2022-06-26 08:09] LABS: BASOPHILS % (AUTO) 0.4 % (0.2-1.0); HEMATOCRIT 38.6 % (36.0-47.0); HEMOGLOBIN 12.5 g/dL (12.0-16.0); LYMPHOCYTES # (AUTO) 0.8 X10^3/uL (1.3-2.9); LYMPHOCYTES % (AUTO) 10.4 % (21.0-51.0); MEAN CORPUSCULAR HEMOGLOBIN 26.1 pg (27.0-34.0); MEAN CORPUSCULAR HGB CONC 32.4 g/dL (33.0-35.0); MEAN CORPUSCULAR VOLUME 80.5 fL (80.0-100.0); MEAN PLATELET VOLUME 8.4 fL (7.4-11.0); MONOCYTES # (AUTO) 0.4 x10^3/uL (0.3-0.8); MONOCYTES % (AUTO) 5.3 % (0.0-13.0); NEUTROPHILS # (AUTO) 6.7 x10^3/uL (2.2-4.8); NEUTROPHILS % (AUTO) 83.9 % (42.0-75.0); RED CELL DISTRIBUTION WIDTH 15.8 % (11.6-16.5)
[2022-06-26 08:22] LABS: ALANINE AMINOTRANSFERASE 11 Units/L (12-78); ALBUMIN 3.5 g/dL (3.4-5.0); ALKALINE PHOSPHATASE 119 Units/L (46-116); ASPARTATE AMINO TRANSFERASE 25 Units/L (15-37); BLOOD UREA NITROGEN 21 mg/dL (7-18); CALCIUM 9.5 mg/dL (8.5-10.1); CARBON DIOXIDE 28.5 mmol/L (21-32); CHLORIDE 100 mmol/L (98-107); COR NA(FOR HYPERGLY) 136 mmol/L (136-145); CREATININE 1.38 mg/dL (0.55-1.02); SODIUM 135 mmol/L (136-145); TOTAL PROTEIN 6.4 g/dL (6.4-8.2); eGFR NON BLACK RACES 38 (>60)
--- NOTE | 2022-06-26 08:30 | RAD ---
HISTORYSOBSTUDYCHEST, 1 [id number]/[id number].TECHNIQUEPA or AP view of the chestFINDINGSRight chest wall port with tip in good position. Left chest wall pacemaker with leads in stable position. Interface at the right peripheral norma thorax is likely a skin fold as there are lung markings seen peripheral to this interface. There are bibasilar pleural parenchymal opacities with likely small to moderate pleural effusions. No definite pneumothorax.IMPRESSIONCardiomegaly. Small to moderate pleural effusions suspected with associated atelectasis versus infiltrate.Electronically signed by: Mike Cardenas (Jun 26, 2022 08:29:18)
[2022-06-26] MEDS: LOPRESSOR TAB 25 MG PO SCH (09:36)
[2022-06-26] MEDS: ESTRACE PO SCH (09:37)
[2022-06-26] MEDS: ZOFRAN INJ 4 MG VIAL IVP PRN ×2 (09:39→23:38)
[2022-06-26] MEDS: COZAAR PO SCH (09:39)
[2022-06-26] MEDS: DEMADEX PO SCH (09:41)
[2022-06-26] MEDS: ARICEPT TAB 5 MG PO SCH (09:42)
[2022-06-26] MEDS: ELIQUIS PO SCH ×2 (09:43→21:12)
[2022-06-26] MEDS: MEGACE PO SCH ×2 (09:45→21:12)
[2022-06-26] MEDS: ROCEPHIN VIAL 1 GRAM 1 G in NS 100 ML IV 100 ML IV SCH (09:46)
[2022-06-26] MEDS: ALBUMIN HUMAN 25%- 100 ML 100 ML IV SCH (10:03)
[2022-06-26] MEDS ORDERED: HEPARIN SODIUM INJ 5000 UNITS IVP ONE (10:12)
--- NOTE | 2022-06-26 11:01 | PCM.PROG ---
Progress Note - Progress Note for Day of Date of Exam: 06/25/22 - Subjective Subjective: IS A 87 YEAR OLD PATIENT OF OURS WHO WAS ADMITTED TO THE HOSPTIAL ON 06/21/22 OBSERVATION STATUS FOR TREATMENT OF CHF, PLEURAL EFFUSION, BRONCHITIS, PROTEIN-CALORIE MALNUTRITION, DEHYDRATION, DECONDITIONING, GENERALIZED WEAKNESS, CHF, HYPOTHYROIDISM, ATRIAL FIBRILLATION, AND HTN. P ATIENTS FAMILY REPORTS THAT SHE HAD BECAME VERY WEAK AT HOME DUE TO POOR ORAL INTAKE. WHEN SHE DID EAT OR DRINK, SHE WAS UNABLE TO KEEP ANYTHING DOWN. SHE DENIES DIARRHEA OR CONSTIPATION. TODAY, SHE IS ALERT AND ORIENTED, LYING IN BED ON MORNING ROUNDS. SHE CONTINUES WITH COMPLAINTS OF WEAKNESS AND SHORTNESS OF BREATH AT TIMES. SHE DENIES NAUSEA OR VOMITING THIS MORNING. SHE DOES CONTINUE TO HAVE A DECREASED APPETITE, BUT FAMILY REPORTS THAT SHE DID EAT SLIGHTLY BETTER TODAY. ON EXAMINATION, HEART IS REGUALR IN RATE AND RHYTHM. BILATERAL LUNGS ARE NOTED WITH DIMINISHED LUNG SOUNDS THROUGHOUT. ABDOMEN IS FLAT, SOFT, AND NON-TENDER WITH NORMAL BOWEL SOUNDS NOTED IN ALL QUADRANTS. NO UPPER OR LOWER EXTREMITY EDEMA NOTED. SHE IS CURRENTLY UTILIZING OXYGEN VIA NASAL CANNULA AT 2 LPM. HER VITALS THIS MORNING ARE: 97.8-77-18-93%-146/70. LABS WERE OBTAINED. WBC 5.8, RBC 4.86, HGB 12.7, HCT 39.6, PLT COUNT 229, SODIUM 140, POTASSIUM 4.2, CHLORIDE 104, CARBON DIOXIDE 32.4, BUN 14, CREATININE 1.07 GLUCOSE 79, CALCIUM 8.6, MAGNESIUM 2.4, TOTAL BILI 1.40, AST 24, ALT 8, ALK PHOS 121, BNP 1840, TOTAL PROTEIN 5.9, ALBUMIN 2.9. A CHEST XRAY WAS OBTAINED TODAY AND REVEALED: 1. Unchanged cardiomegaly. 2. Continued pleural fluid atelectasis. SHE IS CURRENTLY RECEIVING TPN, ALBUMIN 25% IV DAILY, ROCEPHIN 1G IV DAILY, ZOFRAN 4MG IV Q4H PRN NAUSEA, MEGACE 40MG BID, ELIQUIS 2.5MG BID, ARICEPT 5MG DA [place], ESTRACE 1MG DAILY, SYNTHROID 75MCG DAILY, COZAAR 25MG PO DAILY, LOPRESSOR 25MG DAILY, RESTORIL 15MG PO HS PRN, AND TORSEMIDE 20MG PO BID. PHYSICAL THERAPY WILL CONTINUE TO WORK WITH PATIENT TODAY. PATIENT HAS POOR IV ACCESS. DUE TO THE NEED FOR NUTRITIONAL SUPPORT VIA TPN, WE WILL CONSULT FOR A PORT A CATH. OTHERWISE, WE WILL FOLLOW-UP WITH AM LABS AND CONTINUE TO MONITOR. TIME SPENT ON CLINICAL ASSESSMENT, REVIWING LABS AND IMAGING, DECISION MAKING, AND DOCUMENTATION GREATER THAN 45 MINUTES. - Past Medical Family Social History Past Med/Fam/Surg Hx: No changes since H&P Allergies: Allergies No Known Drug Allergies Allergy (Unknown, Verified 06/23/22 19:48) Onset Date: 01/10/2021 - Vital Signs and I&O's Vital Signs: Temperature 97.0 F Pulse Rate [Left Brachial] 69 Pulse Rate 70 Respiratory Rate 16 Blood Pressure [Left Arm] 159/76 Blood Pressure [Right Arm] 152/90 Blood Pressure 147/85 O2 Sat by Pulse Oximetry 99 Intake and Output: Intake & Output 06/23/22 06/24/22 06/25/22 06/26/22 11:59 11:59 11:59 11:59 Intake Total 600 / 600 1352 / 1352 2420 / 2420 3376 / 3376 Output Total 2024 / 2024 300 / 300 1010 / 1010 Balance -1425 / -1425 1052 / 1052 2420 / 2420 2366 / 2366 - Physical Exam Oriented: Normal Eyes: Normal Ear: Normal Nose: Normal Throat: Normal Respiratory: Generalized, Diminished Cardiovascular: Normal : Normal Auscultation: Bowel Sounds: Normal Palpation: Normal Tenderness: Normal Skin: Decreased Turgur Musculoskeletal: Normal Psychiatric: Normal Mood Description: Calm Affect: Normal Speech Pattern: Clear, Appropriate - Laboratory and Diagnostics Result Diagrams: 06/27/22 06:25 06/27/22 06:25 Labs: 06/24/22 04:14 Urine,Clean Catch Urine Culture - Final 06/20/22 12:30 Urine,Clean Catch Urine Culture - Final Laboratory WBC 8.0 X10^3/uL (3.6-10.0) 06/26/22 07:56 RBC 4.80 X10^6/uL (3.5-5.4) 06/26/22 07:56 Hgb 12.5 g/dL (12.0-16.0) 06/26/22 07:56 Hct 38.6 % (36.0-47.0) 06/26/22 07:56 MCV 80.5 fL (80.0-100.0) 06/26/22 07:56 MCH 26.1 pg (27.0-34.0) L 06/26/22 07:56 MCHC 32.4 g/dL (33.0-35.0) L 06/26/22 07:56 RDW 15.8 % (11.6-16.5) 06/26/22 07:56 Plt Count 225 X10^3/uL (150.0-450.0) 06/26/22 07:56 MPV 8.4 fL (7.4-11.0) 06/26/22 07:56 Neut % (Auto) 83.9 % (42.0-75.0) H 06/26/22 07:56 Lymph % (Auto) 10.4 % (21.0-51.0) L 06/26/22 07:56 [place] % (Auto) 5.3 % (0.0-13.0) 06/26/22 07:56 Eos % (Auto) 0.0 % (0.9-2.9) L 06/26/22 07:56 Baso % (Auto) 0.4 % (0.2-1.0) 06/26/22 07:56 Neut # (Auto) 6.7 x10^3/uL (2.2-4.8) H 06/26/22 07:56 Lymph # (Auto) 0.8 X10^3/uL (1.3-2.9) L 06/26/22 07:56 [place] # (Auto) 0.4 x10^3/uL (0.3-0.8) 06/26/22 07:56 Eos # (Auto) 0.0 x10^3/uL (0.0-0.2) 06/26/22 07:56 Baso # (Auto) 0.0 X10^3/uL (0.0-0.1) 06/26/22 07:56 Absolute Nucleated RBC 0.0 /100WBC 06/26/22 07:56 Sodium 135 mmol/L (136-145) L 06/26/22 07:56 Corrected Sodium 136 mmol/L (136-145) 06/26/22 07:56 Potassium 4.3 mmol/L (3.5-5.1) 06/26/22 07:56 Chloride 100 mmol/L (98-107) 06/26/22 07:56 Carbon Dioxide 28.5 mmol/L (21-32) 06/26/22 07:56 BUN 21 mg/dL (7-18) H 06/26/22 07:56 Creatinine 1.38 mg/dL (0.55-1.02) H 06/26/22 07:56 Est GFR (MDRD) Af Amer 46 (>60) L 06/26/22 07:56 Est GFR (MDRD) Non-Af 38 (>60) L 06/26/22 07:56 Glucose 149 mg/dL (65-99) H 06/26/22 07:56 Calcium 9.5 mg/dL (8.5-10.1) 06/26/22 07:56 Corrected Calcium TNP 06/26/22 07:56 Magnesium 2.4 mg/dL (2.0-2.9) 06/25/22 05:45 Total Bilirubin 1.50 mg/dL (0.2-1.0) H 06/26/22 07:56 AST 25 Units/L (15-37) 06/26/22 07:56 ALT 11 Units/L (12-78) L 06/26/22 07:56 Alkaline Phosphatase 119 Units/L (46-116) H 06/26/22 07:56 B-Natriuretic Peptide 2480 pg/mL (0-79) H* 06/26/22 07:56 Total Protein 6.4 g/dL (6.4-8.2) 06/26/22 07:56 Albumin 3.5 g/dL (3.4-5.0) 06/26/22 07:56 Globulin 2.9 g/dL (2.5-4.5) 06/26/22 07:56 Albumin/Globulin Ratio 1.2 Ratio (1.1-2.1) 06/26/22 07:56 Specimen Type Clean catch urine 06/24/22 04:10 Urine Color Pale yellow (YELLOW) 06/24/22 04:10 Urine Appearance Clear (CLEAR) 06/24/22 04:10 Urine pH 7.0 (5.0 - 8.0) 06/24/22 04:10 Ur Specific [place] 1.010 (1.000-1.030) 06/24/22 04:10 Urine Protein Negative (NEGATIVE) 06/24/22 04:10 Urine Glucose (UA) Negative (NEGATIVE) 06/24/22 04:10 Urine Ketones Negative (NEGATIVE) 06/24/22 04:10 Urine Blood Negative (NEGATIVE) 06/24/22 04:10 Urine Nitrite Negative (NEGATIVE) 06/24/22 04:10 Urine Bilirubin Negative (NEGATIVE) 06/24/22 04:10 Urine Urobilinogen 1+ (NORMAL) 06/24/22 04:10 Ur Leukocyte Esterase Negative (NEGATIVE) 06/24/22 04:10 Urine RBC None seen /HPF (0-3) 06/24/22 04:10 Urine WBC None seen /HPF (0-5) 06/24/22 04:10 Ur Squamous Epith Cells Rare /HPF (NEGATIVE) 06/24/22 04:10 Urine Bacteria Negative /HPF (NEGATIVE) 06/24/22 04:10 Urine Yeast Rare /HPF (NEGATIVE) 06/20/22 12:30 Ur Culture Indicated? Yes/culture set up 06/24/22 04:10 - Plan (1) CHF (congestive heart failure) Status: Acute Qualifiers: Heart failure type: unspecified Heart failure chronicity: acute on chronic Qualified Code(s): I50.9 - Heart failure, unspecified Plan: TPN AT 41 ML/HR, ALBUMIN 25% IV DAILY, ROCEPHIN 1G IV DAILY, ZOFRAN 4MG IV Q4H PRN NAUSEA, ELIQUIS 2.5MG BID, ARICEPT 5MG DAILY, ESTRACE 1MG DAILY, SYNTHROID 75MCG DAILY, COZAAR 25MG PO DAILY, LOPRESSOR 25MG DAILY, RESTORIL 15MG PO HS PRN, AND TORSEMIDE 20MG PO BID. (2) Pleural effusion Status: Acute (3) Bronchitis Status: Acute (4) Protein calorie malnutrition Status: Acute Qualifiers: Protein-calorie malnutrition severity: mild Qualified Code(s): E44.1 - Mild protein-calorie malnutrition (5) Physical deconditioning Status: Acute (6) Dehydration Status: Acute (7) Hypothyroidism Status: Chronic Qualifiers: Hypothyroidism type: acquired Qualified Code(s): E03.9 - Hypothyroidism, unspecified (8) Atrial fibrillation Status: Chronic Qualifiers: Atrial fibrillation type: unspecified Qualified Code(s): I48.91 - Unspecified atrial fibrillation (9) Hypertension Status: Chronic Qualifiers: Hypertension type: primary hypertension Qualified Code(s): I10 - Essential (primary) hypertension
[2022-06-26] MEDS: DESMOPRESSIN 0.2 MG PO SCH (11:19)
[2022-06-26] MEDS: LASIX IVP SCH ×2 (11:25→16:30)
[2022-06-26] MEDS ORDERED: DRUG FILTER EXTENSION SET ONE (16:26)
[2022-06-26] MEDS ORDERED: NS 100 ML IV 100 ML ONE (16:26)
[2022-06-26] MEDS: TPN ELECTROLYTES IV SCH ×2 (16:30)
[2022-06-26] MEDS: CLINIMIX IV SCH ×2 (16:30)
[2022-06-26] MEDS ORDERED: NS 100 ML IV 100 ML IV ONE (17:46)
[2022-06-26] MEDS ORDERED: DEMADEX PO SCH (21:00)
[2022-06-26] MEDS: RESTORIL CAP 15 MG PO SCH (21:13)
[2022-06-27] MEDS ORDERED: NS 100 ML IV 100 ML IV ONE (03:59)
[2022-06-27] MEDS: SYNTHROID 75 mcg TAB PO SCH (06:05)
[2022-06-27 06:48] LABS: HEMOGLOBIN 11.6 g/dL (12.0-16.0); MEAN PLATELET VOLUME 8.5 fL (7.4-11.0)
[2022-06-27 06:53] LABS: BASOPHILS % (AUTO) 0.5 % (0.2-1.0); EOSINOPHILS % (AUTO) 0.8 % (0.9-2.9); HEMATOCRIT 36.2 % (36.0-47.0); LYMPHOCYTES # (AUTO) 1.7 X10^3/uL (1.3-2.9); LYMPHOCYTES % (AUTO) 26.1 % (21.0-51.0); MEAN CORPUSCULAR HEMOGLOBIN 26.1 pg (27.0-34.0); MEAN CORPUSCULAR HGB CONC 32.1 g/dL (33.0-35.0); MEAN CORPUSCULAR VOLUME 81.3 fL (80.0-100.0); MONOCYTES # (AUTO) 0.6 x10^3/uL (0.3-0.8); MONOCYTES % (AUTO) 10.1 % (0.0-13.0); NEUTROPHILS % (AUTO) 62.5 % (42.0-75.0); RED BLOOD COUNT 4.45 X10^6/uL (3.5-5.4); RED CELL DISTRIBUTION WIDTH 16.1 % (11.6-16.5); WHITE BLOOD COUNT 6.4 X10^3/uL (3.6-10.0)
[2022-06-27 07:05] LABS: ALANINE AMINOTRANSFERASE 10 Units/L (12-78); ALBUMIN 3.4 g/dL (3.4-5.0); ALKALINE PHOSPHATASE 103 Units/L (46-116); ASPARTATE AMINO TRANSFERASE 25 Units/L (15-37); BLOOD UREA NITROGEN 25 mg/dL (7-18); CARBON DIOXIDE 30.7 mmol/L (21-32); CHLORIDE 104 mmol/L (98-107); CREATININE 1.22 mg/dL (0.55-1.02); SODIUM 140 mmol/L (136-145); TOTAL PROTEIN 6.1 g/dL (6.4-8.2); eGFR NON BLACK RACES 44 (>60)
[2022-06-27] MEDS: ROCEPHIN VIAL 1 GRAM 1 G in NS 100 ML IV 100 ML IV SCH (09:01)
[2022-06-27] MEDS: COZAAR PO SCH (09:02)
[2022-06-27] MEDS: LOPRESSOR TAB 25 MG PO SCH (09:04)
[2022-06-27] MEDS: ESTRACE PO SCH (09:05)
[2022-06-27] MEDS: ELIQUIS PO SCH ×2 (09:05→20:09)
[2022-06-27] MEDS: ARICEPT TAB 5 MG PO SCH (09:05)
[2022-06-27] MEDS: MEGACE PO SCH ×2 (09:06→20:09)
[2022-06-27] MEDS: POTASSIUM CHLORIDE LIQ 20 MEQ UDC PO PRN (09:11)
--- NOTE | 2022-06-27 09:41 | RAD ---
HISTORYShortness of breathSTUDYChest AP [id number]/2023FINDINGSTher e is a pacemaker present on the left obscuring a portion of the left mid lung. There is a port present on the right. Heart is enlarged. No definite congestive heart failure is noted. No acute infiltrates or areas of consolidation noted. Bilateral small pleural effusions are present and unchanged. Bony thorax is unremarkable.IMPRESSIONNo change cardiomegaly without congestive heart failureNo change bilateral small pleural effusionsElectronically signed by: NAVYA BENNETT (Jun 27, 2022 09:40:19)
[2022-06-27] MEDS: DESMOPRESSIN 0.2 MG PO SCH (11:37)
[2022-06-27] MEDS: ALBUMIN HUMAN 25%- 100 ML 100 ML IV SCH (12:10)
[2022-06-27] MEDS: LASIX IVP SCH ×2 (12:11→16:45)
[2022-06-27] MEDS: CLINIMIX IV SCH ×2 (16:45)
[2022-06-27] MEDS: TPN ELECTROLYTES IV SCH ×2 (16:45)
[2022-06-27] MEDS: PERCOCET TAB 5/325 MG PO PRN (19:46)
--- NOTE | 2022-06-27 20:03 | PCM.PROG ---
Progress Note - Progress Note for Day of Date of Exam: 06/26/22 - Subjective Subjective: IS A 87 YEAR OLD PATIENT OF OURS WHO WAS ADMITTED TO THE HOSPTIAL ON 06/21/22 OBSERVATION STATUS FOR TREATMENT OF CHF, PLEURAL EFFUSION, BRONCHITIS, PROTEIN-CALORIE MALNUTRITION, DEHYDRATION, DECONDITIONING, GENERALIZED WEAKNESS, CHF, HYPOTHYROIDISM, ATRIAL FIBRILLATION, AND HTN. P ATIENTS FAMILY REPORTS THAT SHE HAD BECAME VERY WEAK AT HOME DUE TO POOR ORAL INTAKE. WHEN SHE DID EAT OR DRINK, SHE WAS UNABLE TO KEEP ANYTHING DOWN. SHE DENIES DIARRHEA OR CONSTIPATION. TODAY, SHE IS ALERT AND ORIENTED, LYING IN BED ON MORNING ROUNDS. SHE CONTINUES WITH COMPLAINTS OF WEAKNESS AND SHORTNESS OF BREATH AT TIMES. SHE DENIES NAUSEA OR VOMITING THIS MORNING. SHE DOES CONTINUE TO HAVE A DECREASED APPETITE, BUT FAMILY REPORTS THAT SHE DID EAT SLIGHTLY BETTER TODAY. ON EXAMINATION, HEART IS REGUALR IN RATE AND RHYTHM. BILATERAL LUNGS ARE NOTED WITH DIMINISHED LUNG SOUNDS THROUGHOUT. ABDOMEN IS FLAT, SOFT, AND NON-TENDER WITH NORMAL BOWEL SOUNDS NOTED IN ALL QUADRANTS. NO UPPER OR LOWER EXTREMITY EDEMA NOTED. SHE IS CURRENTLY UTILIZING OXYGEN VIA NASAL CANNULA AT 2 LPM. HER VITALS THIS MORNING ARE: 97.0-69-16-99%-159/76. LABS WERE OBTAINED. WBC 8.0, RBC 4.80, HGB 12.5, HCT 38.6, PLT COUNT 225, SODIUM 135, POTASSIUM 4.3, CHLORIDE 100, BUN 21, CREATININE 1.38, GLUCOSE 149, CALCIUM 9.5, TOTAL BILI 1.50, AST 25, ALT 11, ALK PHOS 119, BNP 2480. A CHEST XRAY WAS OBTAINED TODAY AND REVEALED: Cardiomegaly. Small to moderate pleural effusions suspected with associated atelectasis versus infiltrate. SHE IS CURRENTLY RECEIVING TPN, ALBUMIN 25% IV DAILY, ROCEPHIN 1G IV DAILY, ZOFRAN 4MG IV Q4H PRN NAUSEA, MEGACE 40MG BID, ELIQUIS 2.5MG BID, ARICEPT 5MG DAILY, ESTRACE 1MG DAILY, SYNTHROID 75MCG DAILY, COZAAR 25MG PO DAILY, LOPRESSOR 25MG DAILY, RESTORIL 15MG PO HS PRN, AND TORSEMIDE 20MG PO BID. PHYSICAL THERAPY WILL CONTINUE TO WORK WITH PATIENT TODAY. PATIENT HAS POOR IV ACCESS. DUE TO THE NEED FOR NUTRITIONAL SUPPORT VIA TPN, WE WILL CONSULT FOR A PORT A CATH. WE WILL DECREASE HER TORSEMIDE TO 10MG BID AND ADMINISTER LASIX 20MG IV BID. OTHERWISE, WE WILL FOLLOW-UP WITH AM LABS AND CONTINUE TO MONITOR. TIME SPENT ON CLINICAL ASSESSMENT, REVIWING LABS AND IMAGING, DECISION MAKING, AND DOCUMENTATION GREATER THAN 45 MINUTES. - Past Medical Family Social History Past Med/Fam/Surg Hx: No changes since H&P Allergies: Allergies No Known Drug Allergies Allergy (Unknown, Verified 06/23/22 19:48) Onset Date: 01/10/2021 - Review of Systems ROS: No change since H&P - Vital Signs and I&O's Vital Signs: Temperature 98.0 F Pulse Rate [Left Brachial] 84 Pulse Rate 73 Respiratory Rate 20 Blood Pressure [Left Arm] 156/87 Blood Pressure [Right Arm] 152/90 Blood Pressure 147/85 O2 Sat by Pulse Oximetry 94 Intake and Output: Intake & Output 06/25/22 06/26/22 06/27/22 06/28/22 11:59 11:59 11:59 11:59 Intake Total 2420 / 2420 3376 / 3376 2357 / 2357 1204 / 1204 Output Total 1010 / 1010 Balance 2420 / 2420 2366 / 2366 2357 / 2357 1204 / 1204 - Physical Exam Oriented: Normal Eyes: Normal Ear: Normal Nose: Normal Throat: Normal Respiratory: Generalized, Diminished Cardiovascular: Normal : Normal Auscultation: Bowel Sounds: Normal Tenderness: Normal Skin: Decreased Turgur Musculoskeletal: Normal Psychiatric: Normal Mood Description: Calm Affect: Normal Speech Pattern: Clear, Appropriate - Laboratory and Diagnostics Result Diagrams: 06/27/22 06:25 06/27/22 06:25 Labs: 06/24/22 04:14 Urine,Clean Catch Urine Culture - Final 06/20/22 12:30 Urine,Clean Catch Urine Culture - Final Laboratory WBC 6.4 X10^3/uL (3.6-10.0) 06/27/22 06:25 RBC 4.45 X10^6/uL (3.5-5.4) 06/27/22 06:25 Hgb 11.6 g/dL (12.0-16.0) L 06/27/22 06:25 Hct 36.2 % (36.0-47.0) 06/27/22 06:25 MCV 81.3 fL (80.0-100.0) 06/27/22 06:25 MCH 26.1 pg (27.0-34.0) L 06/27/22 06:25 MCHC 32.1 g/dL (33.0-35.0) L 06/27/22 06:25 RDW 16.1 % (11.6-16.5) 06/27/22 06:25 Plt Count 197 X10^3/uL (150.0-450.0) 06/27/22 06:25 MPV 8.5 fL (7.4-11.0) 06/27/22 06:25 Neut % (Auto) 62.5 % (42.0-75.0) 06/27/22 06:25 Lymph % (Auto) 26.1 % (21.0-51.0) 06/27/22 06:25 [place] % (Auto) 10.1 % (0.0-13.0) 06/27/22 06:25 Eos % (Auto) 0.8 % (0.9-2.9) L 06/27/22 06:25 Baso % (Auto) 0.5 % (0.2-1.0) 06/27/22 06:25 Neut # (Auto) 4.0 x10^3/uL (2.2-4.8) 06/27/22 06:25 Lymph # (Auto) 1.7 X10^3/uL (1.3-2.9) 06/27/22 06:25 [place] # (Auto) 0.6 x10^3/uL (0.3-0.8) 06/27/22 06:25 Eos # (Auto) 0.0 x10^3/uL (0.0-0.2) 06/27/22 06:25 Baso # (Auto) 0.0 X10^3/uL (0.0-0.1) 06/27/22 06:25 Absolute Nucleated RBC 0.1 /100WBC 06/27/22 06:25 Sodium 140 mmol/L (136-145) 06/27/22 06:25 Corrected Sodium TNP 06/27/22 06:25 Potassium 3.6 mmol/L (3.5-5.1) 06/27/22 06:25 Chloride 104 mmol/L (98-107) 06/27/22 06:25 Carbon Dioxide 30.7 mmol/L (21-32) 06/27/22 06:25 BUN 25 mg/dL (7-18) H 06/27/22 06:25 Creatinine 1.22 mg/dL (0.55-1.02) H 06/27/22 06:25 Est GFR (MDRD) Af Amer 53 (>60) L 06/27/22 06:25 Est GFR (MDRD) Non-Af 44 (>60) L 06/27/22 06:25 Glucose 87 mg/dL (65-99) 06/27/22 06:25 Calcium 9.0 mg/dL (8.5-10.1) 06/27/22 06:25 Corrected Calcium TNP 06/27/22 06:25 Magnesium 2.4 mg/dL (2.0-2.9) 06/25/22 05:45 Total Bilirubin 1.40 mg/dL (0.2-1.0) H 06/27/22 06:25 AST 25 Units/L (15-37) 06/27/22 06:25 ALT 10 Units/L (12-78) L 06/27/22 06:25 Alkaline Phosphatase 103 Units/L (46-116) 06/27/22 06:25 B-Natriuretic Peptide 2680 pg/mL (0-79) H* 06/27/22 06:25 Total Protein 6.1 g/dL (6.4-8.2) L 06/27/22 06:25 Albumin 3.4 g/dL (3.4-5.0) 06/27/22 06:25 Globulin 2.7 g/dL (2.5-4.5) 06/27/22 06:25 Albumin/Globulin Ratio 1.3 Ratio (1.1-2.1) 06/27/22 06:25 Specimen Type Clean catch urine 06/24/22 04:10 Urine Color Pale yellow (YELLOW) 06/24/22 04:10 Urine Appearance Clear (CLEAR) 06/24/22 04:10 Urine pH 7.0 (5.0 - 8.0) 06/24/22 04:10 Ur Specific [place] 1.010 (1.000-1.030) 06/24/22 04:10 Urine Protein Negative (NEGATIVE) 06/24/22 04:10 Urine Glucose (UA) Negative (NEGATIVE) 06/24/22 04:10 Urine Ketones Negative (NEGATIVE) 06/24/22 04:10 Urine Blood Negative (NEGATIVE) 06/24/22 04:10 Urine Nitrite Negative (NEGATIVE) 06/24/22 04:10 Urine Bilirubin Negative (NEGATIVE) 06/24/22 04:10 Urine Urobilinogen 1+ (NORMAL) 06/24/22 04:10 Ur Leukocyte Esterase Negative (NEGATIVE) 06/24/22 04:10 Urine RBC None seen /HPF (0-3) 06/24/22 04:10 Urine WBC None seen /HPF (0-5) 06/24/22 04:10 Ur Squamous Epith Cells Rare /HPF (NEGATIVE) 06/24/22 04:10 Urine Bacteria Negative /HPF (NEGATIVE) 06/24/22 04:10 Urine Yeast Rare /HPF (NEGATIVE) 06/20/22 12:30 Ur Culture Indicated? Yes/culture set up 06/24/22 04:10 - Plan (1) CHF (congestive heart failure) Status: Acute Qualifiers: Heart failure type: unspecified Heart failure chronicity: acute on chronic Qualified Code(s): I50.9 - Heart failure, unspecified Plan: TPN AT 41 ML/HR, ALBUMIN 25% IV DAILY, ROCEPHIN 1G IV DAILY, ZOFRAN 4MG IV Q4H PRN NAUSEA, ELIQUIS 2.5MG BID, ARICEPT 5MG DAILY, ESTRACE 1MG DAILY, SYNTHROID 75MCG DAILY, COZAAR 25MG PO DAILY, LOPRESSOR 25MG DAILY, RESTORIL 15MG PO HS PRN, AND TORSEMIDE 20MG PO BID. (2) Pleural effusion Status: Acute (3) Bronchitis Status: Acute (4) Protein calorie malnutrition Status: Acute Qualifiers: Protein-calorie malnutrition severity: mild Qualified Code(s): E44.1 - Mild protein-calorie malnutrition (5) Physical deconditioning Status: Acute (6) Dehydration Status: Acute (7) Hypothyroidism Status: Chronic Qualifiers: Hypothyroidism type: acquired Qualified Code(s): E03.9 - Hypothyroidism, unspecified (8) Atrial fibrillation Status: Chronic Qualifiers: Atrial fibrillation type: unspecified Qualified Code(s): I48.91 - Unspecified atrial fibrillation (9) Hypertension Status: Chronic Qualifiers: Hypertension type: primary hypertension Qualified Code(s): I10 - Essential (primary) hypertension
[2022-06-27] MEDS: RESTORIL CAP 15 MG PO SCH (20:08)
[2022-06-28] MEDS: SYNTHROID 75 mcg TAB PO SCH (06:16)
[2022-06-28 06:26] LABS: BASOPHILS # (AUTO) 0.1 X10^3/uL (0.0-0.1); EOSINOPHILS # (AUTO) 0.2 x10^3/uL (0.0-0.2); EOSINOPHILS % (AUTO) 2.9 % (0.9-2.9); HEMOGLOBIN 12.1 g/dL (12.0-16.0); LYMPHOCYTES # (AUTO) 1.7 X10^3/uL (1.3-2.9); LYMPHOCYTES % (AUTO) 27.9 % (21.0-51.0); MEAN CORPUSCULAR HEMOGLOBIN 26.3 pg (27.0-34.0); MEAN CORPUSCULAR HGB CONC 32.6 g/dL (33.0-35.0); MEAN CORPUSCULAR VOLUME 80.6 fL (80.0-100.0); MEAN PLATELET VOLUME 8.7 fL (7.4-11.0); MONOCYTES # (AUTO) 0.8 x10^3/uL (0.3-0.8); NEUTROPHILS # (AUTO) 3.4 x10^3/uL (2.2-4.8); NEUTROPHILS % (AUTO) 54.2 % (42.0-75.0); RED BLOOD COUNT 4.59 X10^6/uL (3.5-5.4); RED CELL DISTRIBUTION WIDTH 16.7 % (11.6-16.5); WHITE BLOOD COUNT 6.2 X10^3/uL (3.6-10.0)
[2022-06-28 06:59] LABS: ALANINE AMINOTRANSFERASE 10 Units/L (12-78); ALBUMIN 3.2 g/dL (3.4-5.0); ALKALINE PHOSPHATASE 91 Units/L (46-116); ASPARTATE AMINO TRANSFERASE 22 Units/L (15-37); BLOOD UREA NITROGEN 29 mg/dL (7-18); CALCIUM 8.9 mg/dL (8.5-10.1); CARBON DIOXIDE 30.1 mmol/L (21-32); CHLORIDE 105 mmol/L (98-107); COR CA(FOR HYPOALB) 9.5 mg/dL (8.5-10.1); CREATININE 1.18 mg/dL (0.55-1.02); SODIUM 140 mmol/L (136-145); TOTAL PROTEIN 5.7 g/dL (6.4-8.2); eGFR NON BLACK RACES 46 (>60)
[2022-06-28] MEDS: ROCEPHIN VIAL 1 GRAM 1 G in NS 100 ML IV 100 ML IV SCH (09:01)
[2022-06-28] MEDS: ALBUMIN HUMAN 25%- 100 ML 100 ML IV SCH (09:02)
[2022-06-28] MEDS: ESTRACE PO SCH (09:03)
[2022-06-28] MEDS: LOPRESSOR TAB 25 MG PO SCH (09:03)
[2022-06-28] MEDS: MEGACE PO SCH ×2 (09:03→21:35)
[2022-06-28] MEDS: LASIX IVP SCH ×2 (09:03→16:10)
[2022-06-28] MEDS: COZAAR PO SCH (09:04)
[2022-06-28] MEDS: ARICEPT TAB 5 MG PO SCH (09:04)
[2022-06-28] MEDS: ELIQUIS PO SCH ×2 (09:05→21:30)
--- NOTE | 2022-06-28 09:37 | RAD ---
HISTORYSOBSTUDYAP chestCOMPARISONMarch 2022FINDINGSSignificant cardiomegaly with stable pacemaker position. Increasing bilateral infiltrates/pulmonary edema and pleural effusions.IMPRESSIONStable cardiomegaly with progression of bilateral infiltrates suggesting interstitial and airspace edema with pleural effusions.Electronically signed by: PANCHO DUBOIS (Jun 28, 2022 09:36:53)
[2022-06-28] MEDS: TPN ELECTROLYTES IV SCH ×2 (11:01)
[2022-06-28] MEDS: CLINIMIX IV SCH ×2 (11:01)
[2022-06-28] MEDS: RESTORIL CAP 15 MG PO SCH (21:26)
[2022-06-29] MEDS: TPN ELECTROLYTES IV SCH ×4 (02:00→10:36)
[2022-06-29] MEDS: CLINIMIX IV SCH ×4 (02:00→10:36)
[2022-06-29] MEDS: SYNTHROID 75 mcg TAB PO SCH (06:16)
[2022-06-29 06:27] LABS: BASOPHILS % (AUTO) 0.7 % (0.2-1.0); EOSINOPHILS # (AUTO) 0.2 x10^3/uL (0.0-0.2); EOSINOPHILS % (AUTO) 3.6 % (0.9-2.9); HEMATOCRIT 36.5 % (36.0-47.0); HEMOGLOBIN 11.8 g/dL (12.0-16.0); LYMPHOCYTES # (AUTO) 1.6 X10^3/uL (1.3-2.9); LYMPHOCYTES % (AUTO) 25.7 % (21.0-51.0); MEAN CORPUSCULAR HEMOGLOBIN 26.3 pg (27.0-34.0); MEAN CORPUSCULAR HGB CONC 32.3 g/dL (33.0-35.0); MEAN CORPUSCULAR VOLUME 81.3 fL (80.0-100.0); MEAN PLATELET VOLUME 8.6 fL (7.4-11.0); MONOCYTES # (AUTO) 0.8 x10^3/uL (0.3-0.8); MONOCYTES % (AUTO) 12.2 % (0.0-13.0); NEUTROPHILS # (AUTO) 3.7 x10^3/uL (2.2-4.8); NEUTROPHILS % (AUTO) 57.8 % (42.0-75.0); RED BLOOD COUNT 4.49 X10^6/uL (3.5-5.4); RED CELL DISTRIBUTION WIDTH 16.5 % (11.6-16.5); WHITE BLOOD COUNT 6.4 X10^3/uL (3.6-10.0)
[2022-06-29 06:37] LABS: ALANINE AMINOTRANSFERASE 7 Units/L (12-78); ALKALINE PHOSPHATASE 83 Units/L (46-116); ASPARTATE AMINO TRANSFERASE 19 Units/L (15-37); BLOOD UREA NITROGEN 29 mg/dL (7-18); CARBON DIOXIDE 30.6 mmol/L (21-32); CHLORIDE 106 mmol/L (98-107); COR CA(FOR HYPOALB) 9.8 mg/dL (8.5-10.1); CREATININE 1.16 mg/dL (0.55-1.02); SODIUM 141 mmol/L (136-145); TOTAL PROTEIN 5.4 g/dL (6.4-8.2); eGFR NON BLACK RACES 47 (>60)
[2022-06-29] MEDS: ROCEPHIN VIAL 1 GRAM 1 G in NS 100 ML IV 100 ML IV SCH (09:50)
[2022-06-29] MEDS: ALBUMIN HUMAN 25%- 100 ML 100 ML IV SCH (09:50)
[2022-06-29] MEDS: LASIX IVP SCH (09:50)
[2022-06-29] MEDS: ESTRACE PO SCH (09:51)
[2022-06-29] MEDS: MEGACE PO SCH ×2 (09:51→21:07)
[2022-06-29] MEDS: ARICEPT TAB 5 MG PO SCH (09:51)
[2022-06-29] MEDS: K-DUR TAB 20 MEQ PO PRN (09:51)
[2022-06-29] MEDS: COZAAR PO SCH (09:53)
[2022-06-29] MEDS: LOPRESSOR TAB 25 MG PO SCH (09:53)
[2022-06-29] MEDS: ELIQUIS PO SCH ×2 (09:54→21:07)
[2022-06-29] MEDS ORDERED: CLINIMIX IV SCH ×3 (10:00)
[2022-06-29] MEDS ORDERED: [UNRECOGNIZED DRUG - OTHER] IV SCH ×3 (10:00)
[2022-06-29] MEDS ORDERED: TPN ELECTROLYTES IV SCH ×3 (10:00)
[2022-06-29] MEDS ORDERED: DRUG FILTER EXTENSION SET ONE (12:55)
[2022-06-29] MEDS ORDERED: K-DUR TAB 20 MEQ PO SCH (13:00)
[2022-06-29] MEDS ORDERED: MICRO K EXTEN CAP 10 MEQ PO ONE (13:30)
[2022-06-29] MEDS: RESTORIL CAP 15 MG PO SCH (21:04)
[2022-06-29] MEDS ORDERED: COLACE CAP 100 MG PO PRN (21:09)
[2022-06-30 06:23] LABS: BASOPHILS % (AUTO) 0.5 % (0.2-1.0); EOSINOPHILS # (AUTO) 0.3 x10^3/uL (0.0-0.2); EOSINOPHILS % (AUTO) 4.4 % (0.9-2.9); HEMATOCRIT 35.4 % (36.0-47.0); HEMOGLOBIN 11.5 g/dL (12.0-16.0); LYMPHOCYTES # (AUTO) 1.6 X10^3/uL (1.3-2.9); LYMPHOCYTES % (AUTO) 25.2 % (21.0-51.0); MEAN CORPUSCULAR HEMOGLOBIN 26.4 pg (27.0-34.0); MEAN CORPUSCULAR HGB CONC 32.4 g/dL (33.0-35.0); MEAN CORPUSCULAR VOLUME 81.3 fL (80.0-100.0); MEAN PLATELET VOLUME 8.5 fL (7.4-11.0); MONOCYTES # (AUTO) 0.8 x10^3/uL (0.3-0.8); MONOCYTES % (AUTO) 13.5 % (0.0-13.0); NEUTROPHILS # (AUTO) 3.5 x10^3/uL (2.2-4.8); NEUTROPHILS % (AUTO) 56.4 % (42.0-75.0); RED BLOOD COUNT 4.36 X10^6/uL (3.5-5.4); RED CELL DISTRIBUTION WIDTH 16.6 % (11.6-16.5); WHITE BLOOD COUNT 6.3 X10^3/uL (3.6-10.0)
[2022-06-30] MEDS: SYNTHROID 75 mcg TAB PO SCH (06:27)
[2022-06-30] MEDS ORDERED: NS 250 ML IV 250 ML IV ONE (08:43)
[2022-06-30 08:49] LABS: ALANINE AMINOTRANSFERASE 9 Units/L (12-78); ALBUMIN 3.1 g/dL (3.4-5.0); ALKALINE PHOSPHATASE 83 Units/L (46-116); ASPARTATE AMINO TRANSFERASE 19 Units/L (15-37); BLOOD UREA NITROGEN 28 mg/dL (7-18); CALCIUM 9.4 mg/dL (8.5-10.1); CARBON DIOXIDE 29.9 mmol/L (21-32); CHLORIDE 107 mmol/L (98-107); COR CA(FOR HYPOALB) 10.1 mg/dL (8.5-10.1); CREATININE 1.07 mg/dL (0.55-1.02); SODIUM 139 mmol/L (136-145); TOTAL PROTEIN 5.5 g/dL (6.4-8.2); eGFR NON BLACK RACES 51 (>60)
[2022-06-30] MEDS ORDERED: LASIX IVP SCH (09:00)
[2022-06-30] MEDS: ROCEPHIN VIAL 1 GRAM 1 G in NS 100 ML IV 100 ML IV SCH (09:07)
[2022-06-30] MEDS: MEGACE PO SCH (09:10)
[2022-06-30] MEDS: ARICEPT TAB 5 MG PO SCH (09:10)
[2022-06-30] MEDS: LOPRESSOR TAB 25 MG PO SCH (09:10)
[2022-06-30] MEDS: COZAAR PO SCH (09:10)
[2022-06-30] MEDS: ESTRACE PO SCH (09:10)
[2022-06-30] MEDS: ELIQUIS PO SCH (09:11)
[2022-06-30] MEDS: ALBUMIN HUMAN 25%- 100 ML 100 ML IV SCH (10:03)
--- NOTE | 2022-06-30 10:48 | RAD ---
HISTORYSOBSTUDYAP chestCOMPARISONMar 2022FINDINGSPersistent cardiomegaly with stable position of pacemaker and right subclavian port. Improved vascular congestion and pulmonary edema. Residual vascular prominence and left pleural effusion.IMPRESSIONPersistent findings of cardiomegaly and CHF and left pleural effusion with significant improvement in the edema component since 2 days prior.Electronically signed by: PANCHO DUBOIS (Jun 30, 2022 10:47:31)
--- NOTE | 2022-06-30 10:59 | PCM.PROG ---
Progress Note - Progress Note for Day of Date of Exam: 06/27/22 - Subjective Subjective: IS A 87 YEAR OLD PATIENT OF OURS WHO WAS ADMITTED TO THE HOSPTIAL ON 06/21/22 OBSERVATION STATUS FOR TREATMENT OF CHF, PLEURAL EFFUSION, BRONCHITIS, PROTEIN-CALORIE MALNUTRITION, DEHYDRATION, DECONDITIONING, GENERALIZED WEAKNESS, CHF, HYPOTHYROIDISM, ATRIAL FIBRILLATION, AND HTN. P ATIENTS FAMILY REPORTS THAT SHE HAD BECAME VERY WEAK AT HOME DUE TO POOR ORAL INTAKE. WHEN SHE DID EAT OR DRINK, SHE WAS UNABLE TO KEEP ANYTHING DOWN. SHE DENIES DIARRHEA OR CONSTIPATION. TODAY, SHE IS ALERT AND ORIENTED, LYING IN BED ON MORNING ROUNDS. SHE CONTINUES WITH COMPLAINTS OF WEAKNESS AND SHORTNESS OF BREATH AT TIMES. SHE ALSO REPORTS SOME DISCOMFORT TO THE RIGHT SIDE CHEST WALL FROM RECENT PORT A CATH PLACEMENT. SHE DENIES NAUSEA OR VOMITING THIS MORNING. SHE DOES CONTINUE TO HAVE A DECREASED APPETITE, BUT FAMILY REPORTS THAT SHE DID EAT SLIGHTLY BETTER TODAY. HER DAUGHTER REPORTS THAT SHE HAS HAD INCREASED CONFUSION AND HALLUCINATIONS THROUGHOUT THE NIGHT. ON EXAMINATION, HEART IS REGULAR IN RATE AND RHYTHM. BILATERAL LUNGS ARE NOTED WITH DIMINISHED LUNG SOUNDS THROUGHOUT. ABDOMEN IS FLAT, SOFT, AND NON-TENDER WITH NORMAL BOWEL SOUNDS NOTED IN ALL QUADRANTS. NO UPPER OR LOWER EXTREMITY EDEMA NOTED. SHE IS CURRENTLY UTILIZING OXYGEN VIA NASAL CANNULA AT 2 LPM. HER VITALS THIS MORNING ARE: 97.9-72-18-99%-139/78. LABS WERE OBTAINED. WBC 6.4, RBC 4.45, HGB 11.6, HCT 36.2, PLT COUNT 197, SODIUM 140, POTASSIUM 3.6, CHLORIDE 104, BUN 25, CREATININE 1.22, GLUCOSE 87, CALCIUM 9.0, TOTAL BILI 1.40, AST 25, ALT 10, ALK PHOS 103, BNP 2680, TOTAL PROTEIN 6.1, ALBUMIN 3.4. A CHEST XRAY WAS OBTAINED TODAY AND REVEALED: No change cardiomegaly without congestive heart failure. No change bilateral small pleural effusions. SHE IS CURRENTLY RECEIVING TPN, ALBUMIN 25% IV DAILY, ROCEPHIN 1G IV DAILY, ZOFRAN 4MG IV Q4H PRN NAUSEA, MEGACE 40MG BID, ELIQUIS 2.5MG BID, ARICEPT 5MG DAILY, ESTRACE 1MG DAILY, SYNTHROID 75MCG DAILY, COZAAR 25MG PO DAILY, LOPRESSOR 25MG DAILY, RESTORIL 15MG PO HS PRN, AND TORSEMIDE 20MG PO BID. PHYSICAL THERAPY WILL CONTINUE TO WORK WITH PATIENT TODAY. WE WILL DISCONTINUE THE TORSEMIDE AND START LASIX 20MG IV DAILY. WE WILL ALSO ADD ZYPREXA 2.5MG PO BID. OTHERWISE, WE WILL FOLLOW-UP WITH AM LABS AND CONTINUE TO MONITOR. TIME SPENT ON CLINICAL ASSESSMENT, REVIWING LABS AND IMAGING, DECISION MAKING, AND DOCUMENTATION GREATER THAN 45 MINUTES. - Past Medical Family Social History Past Med/Fam/Surg Hx: No changes since H&P Allergies: Allergies No Known Drug Allergies Allergy (Unknown, Verified 06/23/22 19:48) Onset Date: 01/10/2021 - Review of Systems ROS: No change since H&P - Vital Signs and I&O's Vital Signs: Temperature 97.4 F Pulse Rate [Left Brachial] 69 Pulse Rate 90 Respiratory Rate 18 Blood Pressure [Left Arm] 188/88 Blood Pressure [Right Arm] 152/90 Blood Pressure 147/85 O2 Sat by Pulse Oximetry 100 Intake and Output: Intake & Output 06/27/22 06/28/22 06/29/22 06/30/22 11:59 11:59 11:59 11:59 Intake Total 2357 / 2357 2286 / 2286 2625 / 2625 1312 / 1312 Balance 2357 / 2357 2286 / 2286 2625 / 2625 1312 / 1312 - Physical Exam Oriented: Normal Eyes: Normal Ear: Normal Nose: Normal Throat: Normal Respiratory: Generalized, Diminished Cardiovascular: Normal : Normal Auscultation: Bowel Sounds: Normal Palpation: Normal Tenderness: Normal Skin: Decreased Turg[place], Wound (SURGICAL WOUND- PORT A CATH PLACEMENT TO RIGHT CHEST WALL) Musculoskeletal: Normal Psychiatric: Normal Mood Description: Calm Affect: Normal Speech Pattern: Clear, Appropriate - Laboratory and Diagnostics Result Diagrams: 06/30/22 05:35 06/30/22 05:35 Labs: 06/24/22 04:14 Urine,Clean Catch Urine Culture - Final 06/20/22 12:30 Urine,Clean Catch Urine Culture - Final Laboratory WBC 6.3 X10^3/uL (3.6-10.0) 06/30/22 05:35 RBC 4.36 X10^6/uL (3.5-5.4) 06/30/22 05:35 Hgb 11.5 g/dL (12.0-16.0) L 06/30/22 05:35 Hct 35.4 % (36.0-47.0) L 06/30/22 05:35 MCV 81.3 fL (80.0-100.0) 06/30/22 05:35 MCH 26.4 pg (27.0-34.0) L 06/30/22 05:35 MCHC 32.4 g/dL (33.0-35.0) L 06/30/22 05:35 RDW 16.6 % (11.6-16.5) H 06/30/22 05:35 Plt Count 174 X10^3/uL (150.0-450.0) 06/30/22 05:35 MPV 8.5 fL (7.4-11.0) 06/30/22 05:35 Neut % (Auto) 56.4 % (42.0-75.0) 06/30/22 05:35 Lymph % (Auto) 25.2 % (21.0-51.0) 06/30/22 05:35 [place] % (Auto) 13.5 % (0.0-13.0) H 06/30/22 05:35 Eos % (Auto) 4.4 % (0.9-2.9) H 06/30/22 05:35 Baso % (Auto) 0.5 % (0.2-1.0) 06/30/22 05:35 Neut # (Auto) 3.5 x10^3/uL (2.2-4.8) 06/30/22 05:35 Lymph # (Auto) 1.6 X10^3/uL (1.3-2.9) 06/30/22 05:35 [place] # (Auto) 0.8 x10^3/uL (0.3-0.8) 06/30/22 05:35 Eos # (Auto) 0.3 x10^3/uL (0.0-0.2) H 06/30/22 05:35 Baso # (Auto) 0.0 X10^3/uL (0.0-0.1) 06/30/22 05:35 Absolute Nucleated RBC 0.1 /100WBC 06/30/22 05:35 Sodium 139 mmol/L (136-145) 06/30/22 05:35 Corrected Sodium TNP 06/30/22 05:35 Potassium 3.9 mmol/L (3.5-5.1) 06/30/22 05:35 Chloride 107 mmol/L (98-107) 06/30/22 05:35 Carbon Dioxide 29.9 mmol/L (21-32) 06/30/22 05:35 BUN 28 mg/dL (7-18) H 06/30/22 05:35 Creatinine 1.07 mg/dL (0.55-1.02) H 06/30/22 05:35 Est GFR (MDRD) Af Amer > 60 (>60) 06/30/22 05:35 Est GFR (MDRD) Non-Af 51 (>60) L 06/30/22 05:35 Glucose 102 mg/dL (65-99) H 06/30/22 05:35 Calcium 9.4 mg/dL (8.5-10.1) 06/30/22 05:35 Corrected Calcium 10.1 mg/dL (8.5-10.1) 06/30/22 05:35 Magnesium 2.4 mg/dL (2.0-2.9) 06/25/22 05:45 Total Bilirubin 1.40 mg/dL (0.2-1.0) H 06/30/22 05:35 AST 19 Units/L (15-37) 06/30/22 05:35 ALT 9 Units/L (12-78) L 06/30/22 05:35 Alkaline Phosphatase 83 Units/L (46-116) 06/30/22 05:35 B-Natriuretic Peptide 1330 pg/mL (0-79) H* 06/30/22 05:35 Total Protein 5.5 g/dL (6.4-8.2) L 06/30/22 05:35 Albumin 3.1 g/dL (3.4-5.0) L 06/30/22 05:35 Globulin 2.4 g/dL (2.5-4.5) L 06/30/22 05:35 Albumin/Globulin Ratio 1.3 Ratio (1.1-2.1) 06/30/22 05:35 Specimen Type Clean catch urine 06/24/22 04:10 Urine Color Pale yellow (YELLOW) 06/24/22 04:10 Urine Appearance Clear (CLEAR) 06/24/22 04:10 Urine pH 7.0 (5.0 - 8.0) 06/24/22 04:10 Ur Specific [place] 1.010 (1.000-1.030) 06/24/22 04:10 Urine Protein Negative (NEGATIVE) 06/24/22 04:10 Urine Glucose (UA) Negative (NEGATIVE) 06/24/22 04:10 Urine Ketones Negative (NEGATIVE) 06/24/22 04:10 Urine Blood Negative (NEGATIVE) 06/24/22 04:10 Urine Nitrite Negative (NEGATIVE) 06/24/22 04:10 Urine Bilirubin Negative (NEGATIVE) 06/24/22 04:10 Urine Urobilinogen 1+ (NORMAL) 06/24/22 04:10 Ur Leukocyte Esterase Negative (NEGATIVE) 06/24/22 04:10 Urine RBC None seen /HPF (0-3) 06/24/22 04:10 Urine WBC None seen /HPF (0-5) 06/24/22 04:10 Ur Squamous Epith Cells Rare /HPF (NEGATIVE) 06/24/22 04:10 Urine Bacteria Negative /HPF (NEGATIVE) 06/24/22 04:10 Urine Yeast Rare /HPF (NEGATIVE) 06/20/22 12:30 Ur Culture Indicated? Yes/culture set up 06/24/22 04:10 - Plan (1) CHF (congestive heart failure) Status: Acute Qualifiers: Heart failure type: unspecified Heart failure chronicity: acute on chronic Qualified Code(s): I50.9 - Heart failure, unspecified Plan: TPN AT 41 ML/HR, ALBUMIN 25% IV DAILY, ROCEPHIN 1G IV DAILY, LASIX 20MG IV DAILY, ZOFRAN 4MG IV Q4H PRN NAUSEA, ELIQUIS 2.5MG BID, ARICEPT 5MG DAILY, ESTRACE 1MG DAILY, SYNTHROID 75MCG DAILY, COZAAR 25MG PO DAILY, LOPRESSOR 25MG DAILY, RESTORIL 15MG PO HS PRN. (2) Pleural effusion Status: Acute (3) Bronchitis Status: Acute (4) Protein calorie malnutrition Status: Acute Qualifiers: Protein-calorie malnutrition severity: mild Qualified Code(s): E44.1 - Mild protein-calorie malnutrition (5) Physical deconditioning Status: Acute (6) Dehydration Status: Acute (7) Hypothyroidism Status: Chronic Qualifiers: Hypothyroidism type: acquired Qualified Code(s): E03.9 - Hypothyroidism, unspecified (8) Atrial fibrillation Status: Chronic Qualifiers: Atrial fibrillation type: unspecified Qualified Code(s): I48.91 - Unspecified atrial fibrillation (9) Hypertension Status: Chronic Qualifiers: Hypertension type: primary hypertension Qualified Code(s): I10 - Essential (primary) hypertension
[2022-06-30 13:21] VITALS: BP 129/69
== END 2022-06-30 13:30 ==
LOC: MED/SURG
PROVIDERS: ADMIT Internal Medicine; ATTEND Internal Medicine
DX: R13.10 Dysphagia, unspecified; R52 Pain, unspecified; I50.9 Heart failure, unspecified; E87.5 Hyperkalemia; Z95.0 Presence of cardiac pacemaker; I48.91 Unspecified atrial fibrillation; N39.0 Urinary tract infection, site not specified; R06.02 Shortness of breath; J90 Pleural effusion, not elsewhere classified; R53.1 Weakness; I11.0 Hypertensive heart disease with heart failure; R26.89 Other abnormalities of gait and mobility; F05 Delirium due to known physiological condition; J20.8 Acute bronchitis due to other specified organisms; I87.2 Venous insufficiency (chronic) (peripheral); Z79.01 Long term (current) use of anticoagulants; K29.00 Acute gastritis without bleeding; E03.8 Other specified hypothyroidism; R11.2 Nausea with vomiting, unspecified; F01.50 Vascular dementia, unspecified severity, without behavioral disturbance, psychotic disturbance, mood disturbance, and anxiety; E86.0 Dehydration